=== PATIENT | male | born 1965 | race Caucasian/White ===

== ENCOUNTER 2024-06-05 11:29 | Inpatient (IN) ==
[2024-06-05 12:17] LABS: Hematocrit (blood only) 22.6 % (42.0-52.0); Hemoglobin 7.6 g/dl (14.0-18.0); Mean Corpuscular Hemoglobin 33.2 pg (25.0-34.0); Mean Corpuscular Hgb Conc 33.6 g/dL (32.0-36.0); Mean Corpuscular Volume 98.7 fL (80.0-100.0); Mean Platelet Volume 11.1 fL (9.4-12.4); Platelet Count 136 K/uL (130-400); RDW Coefficient of Variation 17.2 % (11.5-14.5); RDW Standard Deviation 61.5 fL (36.4-46.3); Red Blood Count 2.29 M/uL (4.70-6.10); White Blood Count 17.44 K/ul (4.8-10.8)
[2024-06-05 12:30] LABS: Albumin Level 2.8 gm/dl (3.4-5.0); Anion Gap 12 (3-11); Bilirubin,Total 16.6 mg/dl (0.2-1.0); Calcium 8.7 mg/dl (8.6-10.3); Carbon Dioxide 19 mmol/L (21-32); Chloride 96 mmol/L (98-107); Potassium 3.8 mmol/L (3.5-5.1); Sodium 127 mmol/L (136-145)
[2024-06-05 12:36] LABS: Alanine Aminotransferase 50 U/L (7-52); Albumin Globulin Ratio 0.7 (0.9-2); Alkaline Phosphatase 169 U/L (34-104); Aspartate Aminotransferase 149 U/L (13-39); BUN Creatinine Ratio 48.6 (10-20); Blood Urea Nitrogen 90 mg/dl (6-23); Globulin 4.1 gm/dl (2.5-4.0); Glucose 123 mg/dl (70-99(Fasting)); Total Protein 6.9 gm/dl (6.0-8.3)
[2024-06-05 12:40] LABS: Troponin I High Sensitivity 7.7 pg/ml (0-20)
[2024-06-05 12:46] LABS: INR 1.7 (0.9-1.1); Partial Thromboplastin Ratio 1.2; Partial Thromboplastin Time 31 Seconds (21-31); Prothrombin Time 17.5 Seconds (9.0-12.0)
[2024-06-05] MEDS ORDERED: SODIUM CHLORIDE 0.9% 100 ML IV PRN ×2 (12:59→23:22)
[2024-06-05] MEDS ORDERED: SODIUM CHLORIDE 0.9% 50 ML IV PRN ×2 (12:59→23:22)
[2024-06-05 13:20] LABS: Adenovirus PCR Not Detected (NotDetected); Bordetella parapertussis PCR Not Detected (NotDetected); Bordetella pertussis PCR Not Detected (NotDetected); Chlamydia pneumoniae PCR Not Detected (NotDetected); Coronavirus 229E PCR Not Detected (NotDetected); Coronavirus CoV-2 (COVID19)PCR Not Detected (NotDetected); Coronavirus HKU1 PCR Not Detected (NotDetected); Coronavirus NL63 PCR Not Detected (NotDetected); Coronavirus OC43PCR Not Detected (NotDetected); Human Metapneumovirus PCR Not Detected (NotDetected); Influenza A PCR Not Detected (NotDetected); Influenza B PCR Not Detected (NotDetected); Mycoplasma pneumoniae PCR Not Detected (NotDetected); Parainfluenza Virus 1 PCR Not Detected (NotDetected); Parainfluenza Virus 2 PCR Not Detected (NotDetected); Parainfluenza Virus 3 PCR Not Detected (NotDetected); Parainfluenza Virus 4 PCR Not Detected (NotDetected); Respiratory Syncytial VirusPCR Not Detected (NotDetected); Rhinovirus/Enterovirus PCR Not Detected (NotDetected)
[2024-06-05] MEDS: SODIUM CHLORIDE 0.9% 1,000 ML IV SCH (13:26)
[2024-06-05 13:29] LABS: Magnesium 1.7 mg/dl (1.7-2.4)
--- NOTE | 2024-06-05 13:52 | CT Scan Report ---
CT OF THE CERVICAL SPINE WITHOUT CONTRAST CLINICAL HISTORY: fall COMPARISON STUDY: MRI of the cervical spine January 10, 2022. CT of the cervical spine January 28, 2022. TECHNIQUE: Helical axial images of the cervical spine were obtained without IV contrast. Sagittal a nd coronal reconstructions were viewed. Automated exposure control was utilized for the study. A do se lowering technique was utilized adhering to the principles of ALARA. FINDINGS: Straightening of the cervical lordosis is unchanged. Vertebral body heights are maintained. No acute cervical spine fracture or subluxation is present. There is no prevertebral edema. Facet samuel ints are intact. There is moderate multilevel disc space narrowing, endplate osteophytosis and facet arthrosis within the cervical spine. IMPRESSION: No acute cervical spine fracture or subluxation. ACT 112: Negative or not required by law. Electronically signed by: Keyshawn Newell M.D. 06/05/2024 1:51 PM
--- NOTE | 2024-06-05 13:57 | CT Scan Report ---
CT head/brain wo con CLINICAL HISTORY: fall. TECHNIQUE: Multiple axial CT images of the head were obtained without contrast. Sagittal and coronal reconstructions were done. A dose lowering technique was utilized adhering to the principles of ALARA . CT DOSE: 3234.99 mGy.cm COMPARISON: 05/18/2023 FINDINGS: The CT findings are unchanged. There is no acute intracranial process identified. There is no intra-axial or extra-axial fluid collection, hemorrhage, or mass. There is no midline shift. There is no skull fracture. There is no fluid in the mastoid air cells of the middle ear. The visualized p aranasal sinuses are unremarkable IMPRESSION: Stable exam; no acute intracranial process identified ACT 112: Negative or not required by law. The above report was generated using voice recognition software. It may contain grammatical, syntax o r spelling errors. Electronically signed by: Lima Meza M.D. 06/05/2024 1:55 PM
--- NOTE | 2024-06-05 14:03 | Electrocardiogram Report ---
Test Reason : Blood Pressure : */* mmHG Vent. Rate : 97 BPM Atrial Rate : 97 BPM P-R Int : 150 ms QRS Dur : 96 ms QT Int : 408 ms P-R-T Axes : 78 41 0 degrees QTcB Int : 518 ms Normal sinus rhythm T wave abnormality, consider inferior ischemia Prolonged QT Abnormal ECG When compared with ECG of 18-May-2023 19:03, Nonspecific T wave abnormality now evident in Lateral leads QT has lengthened Confirmed by Jeremiah Fonseca ([id number]) on 06/05/2024 1:35:33 PM Referred By: Confirmed By: Jeremiah Fonseca
--- NOTE | 2024-06-05 14:06 | CT Scan Report ---
ABDOMEN AND PELVIS CT WITHOUT CONTRAST CT DOSE: 3234.99mGy*cm HISTORY: abd pain fall distention ascites TECHNIQUE: Multiaxial CT images of the abdomen and pelvis were performed without contrast. Sagittal and coronal reconstructions were done. A dose lowering technique was utilized adhering to the princip les of JHONATAN. COMPARISON STUDY: None FINDINGS: There is ascites with a nodular liver contour, splenomegaly, and pronounced to the left upp er quadrant varices. There are no focal liver lesions depicted on this noncontrast study. The gallbla dder and bile ducts are unremarkable. The adrenal glands and kidneys are grossly negative. There are no pancreatic lesion is detected. Ther e is haziness throughout the mesentery associated with this ascites and although pancreatitis is doub tful, cannot be excluded. There is no bowel obstruction or free air. There is no periaortic adenopathy. There is no obstructive uropathy. In the pelvis, multiple colonic diverticula are identified. There is no evidence of diverticulitis. U nopacified urinary bladder is negative. The appendix is not well delineated. There is ascitic fluid i n angle hernias bilaterally. There is a small umbilical hernia containing a small bowel loop with no associated incarceration or obstruction. In the lung bases, there is no lung lesion identified. There is deformity of the anterior costochondr al cartilages with pectus excavatum. There is a small hiatal hernia present. IMPRESSION: Cirrhosis with portal hypertension and four-quadrant ascites. Small umbilical hernia with minimal protrusion of an adjacent small bowel loop. No acute traumatic injuries identified. ACT 112: Negative or not required by law. The above report was generated using voice recognition software. It may contain grammatical, syntax o r spelling errors. Electronically signed by: Lima Meza M.D. 06/05/2024 2:05 PM
--- NOTE | 2024-06-05 14:07 | Emergency Department Note ---
History of Present Illness General Chief complaint: GI Assessment Stated complaint: FLUIDS, GI, BLOODWORK DONE Time Seen by Provider: 06/05/24 12:31 History of Present Illness Provider complaint: Illness Maximum Pain Intensity: 2 58-year-old male alcoholic presents emergency department for illness. Patient reports that he stopped drinking approximately 4 weeks ago because he stated he want to be sober. Patient states he used to drink Minh Kennedy and beer on a regular basis. Patient reports that from or June 03 he started having flulike symptoms. He reports that on May 30 he started having blood in his stools. Patient states he went to his PCP and he was referred here. Patient [place] any fever. He reports nausea vomiting and diarrhea. Reports abdominal pain. Home Medications Medication Instructions Recorded Confirmed Type allopurinol 100 mg tablet 100 mg PO QAM 03/09/21 05/18/23 History fluticasone propionate 50 1 spray intranasal BID PRN sinus 03/09/21 05/18/23 History mcg/actuation nasal congestion spray,suspension amlodipine 2.5 mg tablet 2.5 mg PO DAILY 11/21/21 05/18/23 History cetirizine 10 mg tablet (Zyrtec) 10 mg PO DAILY PRN ALLERGIES 11/21/21 05/18/23 History chlorthalidone 50 mg tablet 50 mg PO DAILY 11/21/21 05/18/23 History telmisartan 80 mg tablet 80 mg PO DAILY 11/21/21 05/18/23 History trazodone 50 mg tablet 50 mg PO HS 05/18/23 05/18/23 History Allergies Allergy/AdvReac Type Severity Reaction Status Date / Time pollen extracts Allergy Intermediate SNEEZING, Verified 05/18/23 20:46 CONGESTION Past Med/Surg History Problem List (Updated 06/05/24 @ 17:37 by Stacy Fregoso DO) Neuropathy Hyponatremia Anemia Jaundice (Acute) Alcoholic hepatitis (Acute) GI bleed (Acute) СВЕТЛАНА (obstructive sleep apnea) Intolerance of continuous positive airway pressure (CPAP) ventilation H/O: HTN (hypertension) Arthritis Sleep apnea Numbness Impaired gait Tremor Medical History Idiopathic polyneuropathy Gout GERD (gastroesophageal reflux disease) Anxiety Parkinson disease COVID-19 No pertinent family history Surgical History No pertinent past surgical history Family History Father Prostate cancer Grandfather Prostate cancer Uncle Prostate cancer Mother Heart disease Hypertension Sister Colorectal cancer Grandfather (Maternal) Heart disease Social History (Updated 06/05/24 @ 17:28 by Stacy Fregoso DO) Smoking Status: Never smoker Hx Alcohol Use: Yes Alcohol type: beer Alcohol Intake Frequency: 2-3 x/Week Hx Substance Use: No Preferred Language: Grenadian Communication Ability: Effective Obstetrician/Gynecologist Required: Yes and No Beliefs That Will Affect Care: None Current Living Situation: Alone Other Information That Helps Us Care for You: No Feels Safe at Home: Yes Assistive Devices: None Physical Exam Vital Signs Vital Signs - 24 hr 06/05/24 11:39 06/05/24 12:53 06/05/24 13:29 Temperature 36.4 C L Temperature Source Oral Pulse Rate 96 H 88 Pulse Rate [Apical] 93 H Respiratory Rate 18 22 22 Blood Pressure 85/57 L Blood Pressure [Left Arm] 115/66 Blood Pressure Mean 66 Blood Pressure Mean [Left Arm] 82 Pulse Oximetry 18 L 100 100 Oxygen Delivery Method Room Air Room Air Room Air Oxygen Flow Rate Sepsis Recent Fever Within 48 Hours No Sepsis New/Unexplained Change in Mental Status N/A Sepsis Action Taken by Nursing No Action Required 06/05/24 14:10 06/05/24 14:34 06/05/24 14:49 Temperature 36.6 C 36.5 C 36.6 C Temperature Source Oral Oral Oral Pulse Rate 93 H 94 H 94 H Pulse Rate [Apical] Respiratory Rate 22 20 17 Blood Pressure 122/67 124/64 129/71 Blood Pressure [Left Arm] Blood Pressure Mean 85 84 90 Blood Pressure Mean [Left Arm] Pulse Oximetry 99 98 99 Oxygen Delivery Method Oxygen Flow Rate 0 0 0 Sepsis Recent Fever Within 48 Hours Sepsis New/Unexplained Change in Mental Status Sepsis Action Taken by Nursing 06/05/24 14:49 06/05/24 15:19 06/05/24 16:19 Temperature 36.6 C 36.6 C 36.4 C L Temperature Source Oral Oral Oral Pulse Rate 94 H 92 H 88 Pulse Rate [Apical] Respiratory Rate 17 19 17 Blood Pressure 129/71 124/68 106/66 Blood Pressure [Left Arm] Blood Pressure Mean 90 86 79 Blood Pressure Mean [Left Arm] Pulse Oximetry 99 100 99 Oxygen Delivery Method Oxygen Flow Rate Sepsis Recent Fever Within 48 Hours Sepsis New/Unexplained Change in Mental Status Sepsis Action Taken by Nursing Physical Exam GENERAL: Ill-appearing. HENT: Exam performed. - Head: Normocephalic and atraumatic. EYES: Conjunctivae and EOM are normal. Pupils are equal, round, and reactive to light. scleral icterus. NECK: Normal range of motion. Neck supple. No JVD present. CV: Normal rate, regular rhythm, normal heart sounds and intact distal pulses. There is no peripheral edema. Palpable radial pulses bue. PULM/CHEST: Effort normal and breath sounds normal. No respiratory distress. No stridor. He has no wheezes. He has no rales. - Chest Wall: He exhibits no tenderness. ABD: The abdomen is soft. Mild distension. Mild tenderness to palpation. There is no rebound, no guarding Rectal: Bright red blood per rectum NEURO: He is alert and oriented to person, place, and time. Sensation grossly intact. SKIN: Jaundiced. Abrasions and wounds over the patient's buttocks. Course Course 1231: The patient was evaluated in room D1B. A complete history and physical exam was performed Cardiac monitoring: An order was placed for continuous cardiac monitoring. The monitor shows a rate of 90 with sinus rhythm interpreted by me 1353: Vital signs stable. Labs show white blood cell count of 17.44. Hemoglobin 7.6. INR 1.7. Sodium 127. Creatinine 1.85, at baseline. Globin 16.6, up from 1.318 days ago. Lipase was too numerous to perform. CT of the abdomen pelvis viewed by me showed ascites at no hepatobiliary dilatation. Discussed with Dr. [facility] radiology and he agrees with this assessment. 1458: Vital signs stable. Blood pressure 129/71. CT head and C-spine negative. Official radiology report for CT of the abdomen pelvis shows cirrhosis with portal hypertension and four-quadrant ascites. Small umbilical hernia with minimal protrusion of an adjacent small bowel loop no traumatic injuries. Blood transfusions begun. I went to attempt an ultrasound-guided diagnostic paracentesis however there were very small fluid pockets with bowel that was floating in it. There was significant concern that if we attempted a paracentesis there would be bowel injury. I attempted to contact [facility] Fan but no response. I spoke with on-call GI Dr. Zamudio. He agreed we should hold off on bedside diagnostic paracentesis and not risk bowel injury. He recommends to continue IV ceftriaxone and treat empirically for SBP. He recommends starting octreotide bolus and drip. He recommends gentle hydration. Right now the patient's blood pressure is stable, he states that if the patient's blood pressure becomes low that albumin can be used. He states hold off on albumin at this time. He states he will be on consult and the patient to be admitted to the hospitalist team. 1525: Vital signs stable. Discussed case with Dr. Miller who will evaluate the patient for admission. I did receive [place] text from LOKESH Jacques who states he will have availability tomorrow to perform procedure. Administered Medications Octreotide Acetate 500 mcg/ (Sodium Chloride) 100.5 mls @ 10.05 mls/hr IV .Q10H [place] Stop: 07/05/24 15:14 Last Admin: 06/05/24 17:01 Dose: 50 mcg/hr, 10.1 mls/hr Documented By: MARIA EUGENIA Parenteral Electrolytes (Plasma-Lyte A Ph 7.4) 1,000 mls @ 80 mls/hr IV .[id number] [place] Stop: 06/06/24 16:29 Last Admin: 06/05/24 16:32 Dose: 80 mls/hr Documented By: MARIA EUGENIA Discontinued Medications Sodium Chloride (Nss) 1,000 mls @ 125 mls/hr IV .Q8H [place] Stop: 06/06/24 12:59 Last Infusion: 06/05/24 15:59 Dose: Infused Documented By: MARIA EUGENIA Admin: 06/05/24 13:26 Dose: 125 mls/hr Documented By: SILAS Ceftriaxone Sodium (Rocephin) 2,000 mg in 50 mls @ 100 mls/hr IV NOW STA Stop: 06/05/24 14:36 Last Infusion: 06/05/24 15:47 Dose: Infused Documented By: Admin: 06/05/24 15:16 Dose: 100 mls/hr Documented By: MARIA EUGENIA Octreotide Acetate 50 mcg/ (Syringe) 10 mls @ 3 mls/min IV ONE STA Stop: 06/05/24 15:10 Last Admin: 06/05/24 16:58 Dose: 3 mls/min Documented By: MARIA EUGENIA Pantoprazole Sodium 80 mg/ (Dextrose) 120 mls @ 480 mls/hr IV NOW STA Stop: 06/05/24 15:26 Last Infusion: 06/05/24 16:34 Dose: Infused Documented By: MARIA EUGENIA Admin: 06/05/24 16:18 Dose: 480 mls/hr Documented By: MARIA EUGENIA Phytonadione 10 mg/ Dextrose 51 mls @ 102 mls/hr IV ONE ONE Stop: 06/05/24 15:49 Last Infusion: 06/05/24 16:41 Dose: Infused Documented By: MARIA EUGENIA Admin: 06/05/24 16:10 Dose: 102 mls/hr Documented By: MARIA EUGENIA Lactated Ringer's (Lr) 1,000 mls @ 80 mls/hr IV .[id number] [place] Stop: 06/06/24 16:29 Last Admin: 06/05/24 16:27 Dose: Not Given Documented By: MARIA EUGENIA Lidocaine/Epinephrine (Lidocaine 1%/Epinephrine 1:100,000 50 Ml Vial) Confirm Administered Dose 1 ml .ROUTE .STK-MED ONE Stop: 06/05/24 13:26 Last Admin: 06/05/24 15:20 Dose: Not Given Documented By: MARIA EUGENIA Critical Care Time Critical Care Time: Yes Total Critical Care Time: 76 I have personally spent greater than 76 minutes of critical care time in the direct management of this patient. This includes bedside care, interpretation of diagnostic studies, and testing, discussion with consultants, patient, and family members, and other required patient management activities. This 76 minutes is in excess of all separately billable procedures. Medical Decision Making Laboratory Data Attestation: I reviewed the patient's lab results. 06/05/24 11:53 06/05/24 11:53 Lab Results 06/05/24 06/05/24 06/05/24 Range/Units 11:43 11:53 12:58 WBC 17.44 H (4.8-10.8) K/ul RBC 2.29 L (4.70-6.10) M/uL Hgb 7.6 L (14.0-18.0) g/dl Hct 22.6 L (42.0-52.0) % MCV 98.7 (80.0-100.0) fL MCH 33.2 (25.0-34.0) pg MCHC 33.6 (32.0-36.0) g/dL RDW Std Deviation 61.5 H (36.4-46.3) fL RDW Coeff of Sean 17.2 H (11.5-14.5) % Plt Count 136 (130-400) K/uL MPV 11.1 (9.4-12.4) fL PT 17.5 H (9.0-12.0) Seconds INR 1.7 H (0.9-1.1) APTT 31 (21-31) Seconds PTT Ratio 1.2 Sodium 127 L (136-145) mmol/L Potassium 3.8 (3.5-5.1) mmol/L Chloride 96 L (98-107) mmol/L Carbon Dioxide 19 L (21-32) mmol/L Anion Gap 12 H (3-11) BUN 90 H (6-23) mg/dl Creatinine 1.85 H (0.6-1.4) mg/dl Est Cr Clr Drug Dosing Not Reportable eGFR 41.96 BUN/Creatinine Ratio 48.6 H (10-20) Glucose 123 H (70-99(Fasting)) mg/dl Calcium 8.7 (8.6-10.3) mg/dl Magnesium 1.7 (1.7-2.4) mg/dl Total Bilirubin 16.6 H (0.2-1.0) mg/dl AST 149 H (13-39) U/L ALT 50 (7-52) U/L Alkaline Phosphatase 169 H (34-104) U/L Troponin I High Sens 7.7 (0-20) pg/ml Total Protein 6.9 (6.0-8.3) gm/dl Albumin 2.8 L (3.4-5.0) gm/dl Globulin 4.1 H (2.5-4.0) gm/dl Albumin/Globulin Ratio 0.7 L (0.9-2) Lipase TNP POC Stool Occult Blood Positive A (Negative) Ethyl Alcohol mg/dL (<10.0) mg/dl Adenovirus (PCR) Not Detected (NotDetected) B. pertussis DNA (PCR) Not Detected (NotDetected) B.parapertussis DNA PCR Not Detected (NotDetected) C. pneumoniae DNA (PCR) Not Detected (NotDetected) Coronavirus OC43 (PCR) Not Detected (NotDetected) Coronavirus HKU1 (PCR) Not Detected (NotDetected) Coronavirus 229E (PCR) Not Detected (NotDetected) SARS-CoV-2 (PCR) Not Detected (NotDetected) Coronavirus NL63 (PCR) Not Detected (NotDetected) Human Metapneumovir PCR Not Detected (NotDetected) Influenza Type A (PCR) Not Detected (NotDetected) Influenza Type B (PCR) Not Detected (NotDetected) M. pneumoniae (PCR) Not Detected (NotDetected) Parainfluenza 1 (PCR) Not Detected (NotDetected) Parainfluenza 2 (PCR) Not Detected (NotDetected) Parainfluenza 3 (PCR) Not Detected (NotDetected) Parainfluenza 4 (PCR) Not Detected (NotDetected) RSV (PCR) Not Detected (NotDetected) Entero/Rhino (PCR) Not Detected (NotDetected) Blood Type O Positive Blood Type Recheck Antibody Screen NEGATIVE Crossmatch See Detail 06/05/24 06/05/24 Range/Units 13:05 15:17 WBC (4.8-10.8) K/ul RBC (4.70-6.10) M/uL Hgb (14.0-18.0) g/dl Hct (42.0-52.0) % MCV (80.0-100.0) fL MCH (25.0-34.0) pg MCHC (32.0-36.0) g/dL RDW Std Deviation (36.4-46.3) fL RDW Coeff of Sean (11.5-14.5) % Plt Count (130-400) K/uL MPV (9.4-12.4) fL PT (9.0-12.0) Seconds INR (0.9-1.1) APTT (21-31) Seconds PTT Ratio Sodium (136-145) mmol/L Potassium (3.5-5.1) mmol/L Chloride (98-107) mmol/L Carbon Dioxide (21-32) mmol/L Anion Gap (3-11) BUN (6-23) mg/dl Creatinine (0.6-1.4) mg/dl Est Cr Clr Drug Dosing eGFR BUN/Creatinine Ratio (10-20) Glucose (70-99(Fasting)) mg/dl Calcium (8.6-10.3) mg/dl Magnesium (1.7-2.4) mg/dl Total Bilirubin (0.2-1.0) mg/dl AST (13-39) U/L ALT (7-52) U/L Alkaline Phosphatase (34-104) U/L Troponin I High Sens (0-20) pg/ml Total Protein (6.0-8.3) gm/dl Albumin (3.4-5.0) gm/dl Globulin (2.5-4.0) gm/dl Albumin/Globulin Ratio (0.9-2) Lipase POC Stool Occult Blood (Negative) Ethyl Alcohol mg/dL < 10.0 (<10.0) mg/dl Adenovirus (PCR) (NotDetected) B. pertussis DNA (PCR) (NotDetected) B.parapertussis DNA PCR (NotDetected) C. pneumoniae DNA (PCR) (NotDetected) Coronavirus OC43 (PCR) (NotDetected) Coronavirus HKU1 (PCR) (NotDetected) Coronavirus 229E (PCR) (NotDetected) SARS-CoV-2 (PCR) (NotDetected) Coronavirus NL63 (PCR) (NotDetected) Human Metapneumovir PCR (NotDetected) Influenza Type A (PCR) (NotDetected) Influenza Type B (PCR) (NotDetected) M. pneumoniae (PCR) (NotDetected) Parainfluenza 1 (PCR) (NotDetected) Parainfluenza 2 (PCR) (NotDetected) Parainfluenza 3 (PCR) (NotDetected) Parainfluenza 4 (PCR) (NotDetected) RSV (PCR) (NotDetected) Entero/Rhino (PCR) (NotDetected) Blood Type Blood Type Recheck O Positive Antibody Screen Crossmatch Imaging Data Attestation: I personally reviewed and interpreted this imaging study as follows: My Impression: CT of the abdomen pelvis viewed by me showed ascites at no hepatobiliary dilatation. Radiologist's Impression: Abdomen/Pelvis CT 06/05/24 12:[address] WITHOUT CONTRAST CT DOSE: 3234.99mGy*cm HISTORY: abd pain fall distention ascites TECHNIQUE: Multiaxial CT images of the abdomen and pelvis were performed without contrast. Sagittal and coronal reconstructions were done. A dose lowering technique was utilized adhering to the principles of ALARA. COMPARISON STUDY: None FINDINGS: There is ascites with a nodular liver contour, splenomegaly, and pronounced to the left upper quadrant varices. There are no focal liver lesions depicted on this noncontrast study. The gallbladder and bile ducts are unremarkable. The adrenal glands and kidneys are grossly negative. There are no pancreatic lesion is detected. There is haziness throughout the mesentery associated with this ascites and although pancreatitis is doubtful, cannot be excluded. There is no bowel obstruction or free air. There is no periaortic adenopathy. There is no obstructive uropathy. In the pelvis, multiple colonic diverticula are identified. There is no evidence of diverticulitis. Unopacified urinary bladder is negative. The appendix is not well delineated. There is ascitic fluid in angle hernias bilaterally. There is a small umbilical hernia containing a small bowel loop with no associated incarceration or obstruction. In the lung bases, there is no lung lesion identified. There is deformity of the anterior costochondral cartilages with pectus excavatum. There is a small hiatal hernia present. IMPRESSION: Cirrhosis with portal hypertension and four-quadrant ascites. Small umbilical hernia with minimal protrusion of an adjacent small bowel loop. No acute traumatic injuries identified. ACT 112: Negative or not required by law. The above report was generated using voice recognition software. It may contain grammatical, syntax or spelling errors. Electronically signed by: Lima Meza M.D. 06/05/2024 2:[address] 06/05/24 12:59 CT OF THE CERVICAL SPINE WITHOUT CONTRAST CLINICAL HISTORY: fall COMPARISON STUDY: MRI of the cervical spine January 10, 2022. CT of the cervical spine January 28, 2022. TECHNIQUE: Helical axial images of the cervical spine were obtained without IV contrast. Sagittal and coronal reconstructions were viewed. Automated exposure control was utilized for the study. A dose lowering technique was utilized adhering to the principles of ALARA. FINDINGS: Straightening of the cervical lordosis is unchanged. Vertebral body heights are maintained. No acute cervical spine fracture or subluxation is present. There is no prevertebral edema. Facet joints are intact. There is moderate multilevel disc space narrowing, endplate osteophytosis and facet arthrosis within the cervical spine. IMPRESSION: No acute cervical spine fracture or subluxation. ACT 112: Negative or not required by law. Electronically signed by: Keyshawn Newell M.D. 06/05/2024 1:[address] 06/05/24 12:59 CT head/brain wo con CLINICAL HISTORY: fall. TECHNIQUE: Multiple axial CT images of the head were obtained without contrast. Sagittal and coronal reconstructions were done. A dose lowering technique was utilized adhering to the principles of ALARA. CT DOSE: 3234.99 mGy.cm COMPARISON: 05/18/2023 FINDINGS: The CT findings are unchanged. There is no acute intracranial process identified. There is no intra-axial or extra-axial fluid collection, hemorrhage, or mass. There is no midline shift. There is no skull fracture. There is no fluid in the mastoid air cells of the middle ear. The visualized paranasal sinuses are unremarkable IMPRESSION: Stable exam; no acute intracranial process identified ACT 112: Negative or not required by law. The above report was generated using voice recognition software. It may contain grammatical, syntax or spelling errors. Electronically signed by: Lima Meza M.D. 06/05/2024 1:55 PM Chest X-Ray 06/05/24 15:11 XR chest 1V portable CLINICAL HISTORY: Sepsis. COMPARISON STUDY: Chest radiograph May 18, 2023. FINDINGS: Lung volumes are normal. Lungs are clear. There is no pneumothorax or pleural effusion. Cardiac size is stable. Mediastinal contours are normal. There is no evidence for pulmonary edema. IMPRESSION: No acute cardiopulmonary findings. ACT 112: Negative or not required by law. Electronically signed by: Keyshawn Newell M.D. 06/05/2024 3:52 PM ECG Data Attestation: I personally reviewed and interpreted this ECG as follows: Rate (beats per minute): 97 Rhythm: + normal sinus ECG Intervals/blocks: + Normal QRS, + Prolonged QT and + Normal TN ECG ST segments: + Normal ST segments MDM Narrative 1231: The patient was evaluated in room D1B. A complete history and physical exam was performed Cardiac monitoring: An order was placed for continuous cardiac monitoring. The monitor shows a rate of 90 with sinus rhythm interpreted by me 1353: Vital signs stable. Labs show white blood cell count of 17.44. Hemoglobin 7.6. INR 1.7. Sodium 127. Creatinine 1.85, at baseline. Globin 16.6, up from 1.318 days ago. Lipase was too numerous to perform. CT of the abdomen pelvis viewed by me showed ascites at no hepatobiliary dilatation. Discussed with Dr. [facility] radiology and he agrees with this assessment. 1458: Vital signs stable. Blood pressure 129/71. CT head and C-spine negative. Official radiology report for CT of the abdomen pelvis shows cirrhosis with portal hypertension and four-quadrant ascites. Small umbilical hernia with minimal protrusion of an adjacent small bowel loop no traumatic injuries. Blood transfusions begun. I went to attempt an ultrasound-guided diagnostic paracentesis however there were very small fluid pockets with bowel that was floating in it. There was significant concern that if we attempted a paracentesis there would be bowel injury. I attempted to contact [facility] Fan but no response. I spoke with on-call GI Dr. Zamudio. He agreed we should hold off on bedside diagnostic paracentesis and not risk bowel injury. He recommends to continue IV ceftriaxone and treat empirically for SBP. He recommends starting octreotide bolus and drip. He recommends gentle hydration. Right now the patient's blood pressure is stable, he states that if the patient's blood pressure becomes low that albumin can be used. He states hold off on albumin at this time. He states he will be on consult and the patient to be admitted to the hospitalist team. 1525: Vital signs stable. Discussed case with Dr. Miller who will evaluate the patient for admission. I did receive [place] text from LOKESH Jacques who states he will have availability tomorrow to perform procedure. Impression & Plan GI bleed, Alcoholic hepatitis, Jaundice Discharge Plan Visit Data Chief Complaint: GI Assessment Stated Complaint: FLUIDS, GI, BLOODWORK DONE ED Provider: Juan Mariee Discharge Problem: GI bleed, Alcoholic hepatitis, Jaundice Patient Disposition: Admitted As Inpatient Discharge Instructions Interventions: ED Discharge Assessment Last Done: 06/05/24 17:32
[2024-06-05] MEDS: cefTRIAXone SODIUM 2,000 MG/50 ML BAG IV STA (15:16)
[2024-06-05] MEDS: LIDOCAINE 1%/EPINEPHRINE 1:100,000 50 ML VIAL ONE (15:20)
--- NOTE | 2024-06-05 15:33 | History & Physical Report ---
Date of Service June 05, 2024 Assessment & Plan (1) Jaundice: (2) Alcoholic hepatitis: (3) GI bleed: (4) Anemia: (5) Hyponatremia: (6) СВЕТЛАНА (obstructive sleep apnea): (7) H/O: HTN (hypertension): (8) Neuropathy: Plan Peter Dey is a 58 year-old male with a medical history significant for gout, GERD, HTN, neuropathy, and DAVIS. Patient was admitted for abdominal ascites and cirrhosis as well as GI bleed. Cirrhosis | Abdominal Ascites -Previously diagnosed with nonalcoholic steatohepatitis with stage 2 liver fibrosis by biopsy (March 2022), was lost to follow up with [facility] hepatology over two years ago -Family reports jaundiced skin and eyes for at least 1 week, increasing abdominal girth and poor appetite for several weeks -Suspect that recent viral flu-like illness contributed to recent rapid progression of symptoms/decline in liver function -CT A/P shows: "cirrhosis with portal hypertension and four-quadrant ascites. Small umbilical hernia with minimal protrusion of an adjacent small bowel loop." -Due to anatomy of bowel loop, ED physician defers paracentesis to IR -Will order IR paracentesis with goal to complete tomorrow (06/06) -TBili of 16.6. MELD score currently at 32 -Monitor daily liver function panel, CBC -Continue Ceftriaxone for coverage of SBP. Leukocytosis but afebrile at present. -Due to history of heavier alcohol consumption, will order AWSS "at-risk" protocol -Negative serum alcohol level in ED, patient reports it has been >1 month since last drinking -BP has been 100s systolic while in ED, if patient becomes more hypotensive could consider IV albumin Gastrointestinal Bleed | Anemia -Ongoing for >1 week with bright red blood in stool -POC Hemoccult positive in the ED. Ordered stool biofire due to bowel incontinence, however this is likely due to presence of blood in stool -Hgb 7.6 on arrival to ED. Started on Octreotide in ED -Blood consent form signed, s/p 1u PRBCs -Monitor H&H q6h, transfuse for Hgb <7 -Continue IV Protonix BID, maintenance IV fluids ordered -GI consult ordered, appreciated recommendations -Will keep NPO while awaiting further GI evaluation СВЕТЛАНА- continue CPAP HTN- holding home anti-hypertensives due to current borderline hypotension Admit to: PCU/tele Diet: NPO VTE Prophylaxis: Contraindicated due to GI bleed Code Status: Full Code History of Present Illness Primary Care Provider: Vivi Lopez MD Peter Dey is a 58 year-old male with a medical history significant for gout, GERD, HTN, neuropathy, and DAVIS who presented to the ED for blood in stool. He was seen by his PCP this morning for a recent flu-like illness and was found to be hypotensive (BP 78/42) and jaundiced, was strongly recommended to go to the ED for further evaluation. Patient presented to the ED alongside his mother and father. Patient states that he stopped drinking alcohol about 1 month ago (states he had been drinking about 1 beer and 300mL of Minh Kennedy per week at that time), then a few weeks later he started to develop a flu-like illness and had episodes of fever, vomiting, and nausea. He states he has not been eating or drinking much fluids recently due to no appetite. He denies dizziness or lightheadedness, but endorses feeling very winded/short of breath with minimal exertion (i.e. standing up). He reports that he has had ongoing bowel incontinence with bright red blood in his stool, also has had bladder incontinence so he has been wearing a Depends since this illness started about two weeks ago. P Patient lives alone, his parents live locally and visit several times per week. Patient previously lived in [place] area, moved to [place] a few years ago. Patient's father notes that he first started to notice that Peter looked a bit yellow about 1.5 weeks ago. Patient notes that his abdomen has also become more large, will occasionally be tender (1 or 2 out of 10 intensity). He recalls being evaluated by hepatology in the past at [facility] (saw Dr. Parr), but has not follow up in about two years. Prior records note a biopsy proven DAVIS with stage 2 liver fibrosis (from biopsy in 2021). ED Course: -CBC, CMP, Type/screen -CXR -2g IV Ceftriaxone, IV Octreotide, Allergies Allergy/AdvReac Type Severity Reaction Status Date / Time pollen extracts Allergy Intermediate SNEEZING, Verified 05/18/23 20:46 CONGESTION Home Medications Medication Instructions Recorded Confirmed Type allopurinol 100 mg tablet 100 mg PO QAM 03/09/21 05/18/23 History fluticasone propionate 50 1 spray intranasal BID PRN sinus 03/09/21 05/18/23 History mcg/actuation nasal congestion spray,suspension amlodipine 2.5 mg tablet 2.5 mg PO DAILY 11/21/21 05/18/23 History cetirizine 10 mg tablet (Zyrtec) 10 mg PO DAILY PRN ALLERGIES 11/21/21 05/18/23 History chlorthalidone 50 mg tablet 50 mg PO DAILY 11/21/21 05/18/23 History telmisartan 80 mg tablet 80 mg PO DAILY 11/21/21 05/18/23 History trazodone 50 mg tablet 50 mg PO HS 05/18/23 05/18/23 History Past Med/Surg History Problem List (Updated 06/05/24 @ 17:37 by Stacy Fregoso DO) Neuropathy Hyponatremia Anemia Jaundice (Acute) Alcoholic hepatitis (Acute) GI bleed (Acute) СВЕТЛАНА (obstructive sleep apnea) Intolerance of continuous positive airway pressure (CPAP) ventilation H/O: HTN (hypertension) Arthritis Sleep apnea Numbness Impaired gait Tremor Medical History Idiopathic polyneuropathy Gout GERD (gastroesophageal reflux disease) Anxiety Parkinson disease COVID-19 No pertinent family history Surgical History No pertinent past surgical history Family History Father Prostate cancer Grandfather Prostate cancer Uncle Prostate cancer Mother Heart disease Hypertension Sister Colorectal cancer Grandfather (Maternal) Heart disease Social History (Updated 06/05/24 @ 17:28 by Stacy Fregoso DO) Smoking Status: Never smoker Hx Alcohol Use: Yes Alcohol type: beer Alcohol Intake Frequency: 2-3 x/Week Hx Substance Use: No Preferred Language: Central [place] Communication Ability: Effective Hot Roller Required: Yes and No Beliefs That Will Affect Care: None Current Living Situation: Alone Feels Safe at Home: Yes Assistive Devices: None Review of Systems Review of Systems: As per above Physical Exam Constitutional: Ill appearing, resting in bed. Alert and oriented. Eyes: PERRL Scleral icterus bilaterally ENMT: Ears: no external ear abnormality Nose: no external nose abnormality Moist mucous membranes Respiratory: normal respiratory effort, lungs clear to auscultation Cardiovascular: Rate/Rhythm: regular rate and regular rhythm Extremities: no edema Gastrointestinal (Abdomen): Inspection/Auscultation: + abdomen distended and + caput medusae present Percussion/Palpation: abdomen soft and + ascites No point tenderness to palpation Musculoskeletal: Moves all limbs independently Skin: + jaundice No rashes, warm and dry. Neurologic: CN's II-XI intact bilaterally, moves all extremities and awake; no focal motor deficits Psychiatric: A+Ox3, euthymic affect Results & Data Results & Data Vital Signs (Past 12 Hours) Vital Signs Temp Pulse Pulse Resp BP BP Pulse Ox 06/05/24 15:19 36.6 C 92 H 19 124/68 100 06/05/24 14:49 36.6 C 94 H 17 129/71 99 06/05/24 14:49 36.6 C 94 H 17 129/71 99 06/05/24 14:34 36.5 C 94 H 20 124/64 98 06/05/24 14:10 36.6 C 93 H 22 122/67 99 06/05/24 13:29 93 H 22 115/66 100 06/05/24 12:53 88 22 100 06/05/24 11:39 36.4 C L 96 H 18 85/57 L 18 L O2 Del Method O2 Flow Rate 06/05/24 15:19 06/05/24 14:49 06/05/24 14:49 0 06/05/24 14:34 0 06/05/24 14:10 0 06/05/24 13:29 Room Air 06/05/24 12:53 Room Air 06/05/24 11:39 Room Air Diagnostic Findings Abdomen/Pelvis CT 06/05/24 12:[address] WITHOUT CONTRAST CT DOSE: 3234.99mGy*cm HISTORY: abd pain fall distention ascites TECHNIQUE: Multiaxial CT images of the abdomen and pelvis were performed without contrast. Sagittal and coronal reconstructions were done. A dose lowering technique was utilized adhering to the principles of ALARA. COMPARISON STUDY: None FINDINGS: There is ascites with a nodular liver contour, splenomegaly, and pronounced to the left upper quadrant varices. There are no focal liver lesions depicted on this noncontrast study. The gallbladder and bile ducts are unremarkable. The adrenal glands and kidneys are grossly negative. There are no pancreatic lesion is detected. There is haziness throughout the mesentery associated with this ascites and although pancreatitis is doubtful, cannot be excluded. There is no bowel obstruction or free air. There is no periaortic adenopathy. There is no obstructive uropathy. In the pelvis, multiple colonic diverticula are identified. There is no evidence of diverticulitis. Unopacified urinary bladder is negative. The appendix is not well delineated. There is ascitic fluid in angle hernias bilaterally. There is a small umbilical hernia containing a small bowel loop with no associated incarceration or obstruction. In the lung bases, there is no lung lesion identified. There is deformity of the anterior costochondral cartilages with pectus excavatum. There is a small hiatal hernia present. IMPRESSION: Cirrhosis with portal hypertension and four-quadrant ascites. Small umbilical hernia with minimal protrusion of an adjacent small bowel loop. No acute traumatic injuries identified. ACT 112: Negative or not required by law. The above report was generated using voice recognition software. It may contain grammatical, syntax or spelling errors. Electronically signed by: Lima Meza M.D. 06/05/2024 2:[address] 06/05/24 12:59 CT OF THE CERVICAL SPINE WITHOUT CONTRAST CLINICAL HISTORY: fall COMPARISON STUDY: MRI of the cervical spine January 10, 2022. CT of the cervical spine January 28, 2022. TECHNIQUE: Helical axial images of the cervical spine were obtained without IV contrast. Sagittal and coronal reconstructions were viewed. Automated exposure control was utilized for the study. A dose lowering technique was utilized adhering to the principles of ALARA. FINDINGS: Straightening of the cervical lordosis is unchanged. Vertebral body heights are maintained. No acute cervical spine fracture or subluxation is present. There is no prevertebral edema. Facet joints are intact. There is moderate multilevel disc space narrowing, endplate osteophytosis and facet arthrosis within the cervical spine. IMPRESSION: No acute cervical spine fracture or subluxation. ACT 112: Negative or not required by law. Electronically signed by: Keyshawn Newell M.D. 06/05/2024 1:[address] 06/05/24 12:59 CT head/brain wo con CLINICAL HISTORY: fall. TECHNIQUE: Multiple axial CT images of the head were obtained without contrast. Sagittal and coronal reconstructions were done. A dose lowering technique was utilized adhering to the principles of ALARA. CT DOSE: 3234.99 mGy.cm COMPARISON: 05/18/2023 FINDINGS: The CT findings are unchanged. There is no acute intracranial process identified. There is no intra-axial or extra-axial fluid collection, hemorrhage, or mass. There is no midline shift. There is no skull fracture. There is no fluid in the mastoid air cells of the middle ear. The visualized paranasal sinuses are unremarkable IMPRESSION: Stable exam; no acute intracranial process identified ACT 112: Negative or not required by law. The above report was generated using voice recognition software. It may contain grammatical, syntax or spelling errors. Electronically signed by: Lima Meza M.D. 06/05/2024 1:55 PM Supervising Physician Co-Signing Physician Notes I personally examined the patient and verified frances points of history and exam, discussed case, and agree with decision making and plan documented by Dr. Fregoso. Patient is a 56-year-old male with a history of alcohol abuse, idiopathic polyneuropathy, hypertension, СВЕТЛАНА, GERD, and gout on admission after a reported 1 week gastrointestinal illness with associated fevers, nausea, vomiting, and bloody diarrhea. Patient was seen by his PCP and found to be jaundice with hypotension and was sent to emergency department. Patient presents to ED with anemia (Hgb 7.6), bilirubin 16.6, elevated lipase, leukocytosis, and hypothermia. [facility], will monitor hemoglobin thereafter. Empiric ceftriaxone initiated, no blood cultures obtained. Patient was fluid resuscitated with 2L LR, now on mIVF. GI consulted. Plan is for diagnostic paracentesis tomorrow for concern of SBP. Octeotide bolus and drip initiated for possible varices. On exam patient jaundiced, lungs clear b/l to auscultation, regular rate and rhythm, abdomen tender to deep palpation, fluid wave present, no guarding. Will monitor hemodynamics closely. Resident Activity Tracking Resident Involvement: Resident Care Provided Care Provided: [facility] Medicine
--- NOTE | 2024-06-05 15:53 | XRay Report ---
XR chest 1V portable CLINICAL HISTORY: Sepsis. COMPARISON STUDY: Chest radiograph May 18, 2023. FINDINGS: Lung volumes are normal. Lungs are clear. There is no pneumothorax or pleural effusion. Car diac size is stable. Mediastinal contours are normal. There is no evidence for pulmonary edema. IMPRESSION: No acute cardiopulmonary findings. ACT 112: Negative or not required by law. Electronically signed by: Keyshawn Newell M.D. 06/05/2024 3:52 PM
[2024-06-05] MEDS: PHYTONADIONE 10 MG in DEXTROSE 5% 50 ML IV ONE (16:10)
[2024-06-05] MEDS: PANTOprazole 80 MG in DEXTROSE 5% 100 ML IV STA (16:18)
[2024-06-05] MEDS: LACTATED RINGER'S 1,000 ML IV SCH (16:27)
[2024-06-05] MEDS: PLASMA-LYTE A 1,000 ML IV SCH (16:32)
[2024-06-05] MEDS: OCTREOTIDE ACETATE 50 MCG in SYRINGE 9.5 ML IV STA (16:58)
[2024-06-05] MEDS: OCTREOTIDE ACETATE 500 MCG in SODIUM CHLORIDE 0.9% 100 ML IV SCH (17:01)
--- OUTSIDE RECORDS SUMMARY | 2024-06-05 17:30 | External Medical Summary | Continuity of Care Document ---
Author Name Unknown Organization [address] Address [address] [place] [phone] Care Team Providers Care Felt Pad Cutter Name Role Phone Luanne Lopez Primary Care Physician [phone] Encounter [facility] [id number] Date(s): 01/03/24 - 01/03/[address], [facility] [address] [place] [address] [place] [phone] Encounter Diagnosis Hypertension(Discharge Diagnosis) - 01/03/24 DAVIS (nonalcoholic steatohepatitis)(Discharge Diagnosis) - 01/03/24 Metabolic syndrome(Discharge Diagnosis) - 01/03/24 Obstructive sleep apnea(Discharge Diagnosis) - 01/03/24 Screening for hyperlipidemia(Discharge Diagnosis) - 01/03/24 Gout(Discharge Diagnosis) - 01/03/24 COVID-19 virus infection(Discharge Diagnosis) - 01/03/24 Prostate cancer screening(Discharge Diagnosis) - 01/03/24 Discharge Disposition: Home or Self Care Attending Physician: MD Lopez Ravishankar E Referring Physician: MD Lopez Ravishankar E Allergies, Adverse Reactions, Alerts No Known Medication Allergies Substance Criticality Severity Reaction Reaction Severity Status Allergy Not found in Search seasonal Active Assessment and Plan Extracted from: Title:Office Visit Note Author:MD Lopez Ravishan kar E Date:01/03/24 1.Hypertension - Update CMP, continue surveillance and routine cardiology f/u - Amlodipine had caused swelling at 10mg so now at 2.5mg and used in conjunction with spironolactone which has workedwell for him since. - Unable to adequately assess via telehealth beyond symptom screening 2.DAVIS (nonalcoholic steatohepatitis) - Management per hepatology - CMP to surveil 3.Metabolic syndrome - CMP to surveil - Continued to encouraged weight loss 4.Obstructive sleep apnea - Did not improve with CPAP x 6 months - ENT consulted, pending scheduling for this as he had to reschedule due to office move and covid 5.Screening for hyperlipidemia - FLP to surveil 6.Gout - Uric acid level to surveil - Congratulated on alcohol reduction 7.COVID-19 virus infection - Symptomatic management and contagion precautions reviewed - No indication for paxlovid atthis time. 8.Prostate cancer screening - PSA Screen given family history f/u PRN or [id number]. Time: 40mins 10 - pre-visit chart review 25 - visit, inclusive of history, exam, and discussion of assessment/plan 5 - post-visit documentation/orders/coordination of care Immunizations Given and Recorded Vaccine Date Status Refusal Reason zoster vaccine, inactivated 1 01/30/23 Given zoster vaccine, inactivated 2 11/28/22 Given influenza virus vaccine, inactivated 01/30/23 Give n tetanus/diphtheria/pertuss, acel (Tdap) 11/28/22 G iven hepatitis B adult vaccine 08/11/22 Given hepatitis B adult vaccine 05/05/22 Given SARS-CoV-2 (COVID-19) mRNA-1273 vaccine 08/12/20 R ecorded SARS-CoV-2 (COVID-19) mRNA-1273 vaccine 07/13/20 R ecorded 1Result Comment: [id number] 11/30/2024 2Result Comment: [id number] 12/30/24 Medications allopurinol 100 mg oral tablet Start: 11/28/22 8:10:00 AM EDT, See Instructions, Disp# 30 tab, Refills: 11, TAKE ONE TABLET BY MOUTH EVERY DAY, Pharmacy: [id number] Start Date: 11/28/22 Status: Ordered amLODIPine 2.5 mg oral tablet Start: 11/07/23 3:26:00 PM EDT, 1 tab, PO, Daily, Disp# 90 tab, Refills: 3, DOSE CHANGE, Note to Pharmacy: CANCEL PREVIOUS DOSE, Pharmacy: [id number] Start Date: 11/07/23 Status: Ordered Collagen Skin Renewal 30 mg-833.33 mg oral tablet Start: 01/09/23 11:29:00 AM EDT Start Date: 01/09/23 Status: Ordered Flonase 50 mcg/inh nasal spray Start: 11/29/21 10:49:00 AM EDT, 1 spray, each nostril, bid, Disp# 16 g, Refills: 3, in each nostrilprn sinus congestion, Pharmacy: [facility] [id number] Start Date: 11/29/21 Status: Ordered indomethacin 50 mg oral capsule Start: 12/22/22 8:06:00 AM EDT, 1 cap, PO, tid, Disp# 30 cap, Refills: 1, as needed for gout flare., PRN: as needed for arthritis, Pharmacy: [facility] [id number] Start Date: 12/22/22 Stop Date: 01/05/23 Status: Ordered magnesium gluconate 250 mg oral tablet Start: 11/28/22 7:55:00 AM EDT, 1 tab, PO, Daily Start Date: 11/28/22 Status: Ordered MetroGel 1% topical gel Start: 05/30/22 8:47:00 AM EST, 1 appl, topical, Daily, Disp# 60 g, Refills: 1, Pharmacy: [facility] [id number] Start Date: 05/30/22 Stop Date: 07/29/22 Status: Ordered spironolactone 50 mg oral tablet Start: 11/07/23 3:26:00 PM EDT, 1 tab, PO, Daily, Disp# 90 tab, Refills: 3, Pharmacy: [facility] [id number] Start Date: 11/07/23 Status: Ordered telmisartan 80 mg oral tablet Start: 05/31/23 4:11:00 PM EST, 1 tab, PO, Daily, Disp# 30 tab, Refills: 5, Pharmacy: [facility] [id number] Start Date: 05/31/23 Status: Ordered traZODone 50 mg oral tablet Start: 12/22/22 8:10:00 AM EDT, 1 tab, PO, qhs, Disp# 30 tab, Refills: 3, Pharmacy: [facility] [id number] Start Date: 12/22/22 Status: Ordered Vitamin C Start: 08/03/22 9:29:00 AM EDT Start Date: 08/03/22 Status: Ordered ZyrTEC 5 mg oral tablet Start: 01/16/23 4:16:00 PM EDT, 1 tab, PO, Daily, Disp# 100 tab, Refills: 0, PRN: as needed for allergy symptoms, Pharmacy: [id number] Start Date: 01/16/23 Status: Ordered Problem List Condition Confirmation Course Effective Dates Status H ealth Status Informant Impaired gait Confirmed Active Alanine aminotransferase above reference range Confirmed Active ABRAHAN positive Confirmed Active Anxiety Confirmed Active Arthritis Confirmed Active Disorder of joint of ankle and/or foot 1 Confirmed Active Epigastric abdominal pain Confirmed Active GERD (gastroesophageal reflux disease) Confirmed Active Gout Confirmed Active Hypertension Confirmed Active Action tremor Confirmed Active Elevated LFTs Confirmed Active Metabolic syndrome Confirmed Active Nausea Confirmed Active Non-alcoholic fatty liver disease Confirmed Active DAVIS (nonalcoholic steatohepatitis) Confirmed Active Obstructive sleep apnea Confirmed Active OA (osteoarthritis) of knee Confirmed Active Body mass index [BMI] 29.0-29.9, adult Confirmed Active Knee pain, left Confirmed Active Small fiber neuropathy Confirmed Active 1Outside Source Comment: very Pleasant middle aged male with recurrent episodes of acute monoarthritis involving the ankles ( | right previously and now the left), with mild hyperuricemia and a history of moderate alcohol use and borderline HTN is very very suggestive of Gout although not proven by aspiration yet; recent labs would suggest he is an under excretor of uric acid probably related to borderline hypertension and borderline creatinine clearance of 87ml/min; would not commit to chronic hypouricemic therapy at present but would strongly avoid alcohol usage; if he has another episode heshould notify me so that he may be seen for an aspiration; if that occurs and is aspiration proven, would then initiate therapy with chronic hypouricemic therapy; this discussed in detail; Diagnosis Diagnosis Type Effective Dates Health Status Clinical Service Informant Screening for hyperlipidemia Discharge Diagnosis 01/03/24 Non-Specified Hypertension Discharge Diagnosis 01/03/24 Non-Specified DAVIS (nonalcoholic steatohepatitis) Discharge Diagnosis 01/03/24 Non-Specified Obstructive sleep apnea Discharge Diagnosis 01/03/24 Non-Specified COVID-19 virus infection Discharge Diagnosis 01/03/24 Non-Specified Prostate cancer screening Discharge Diagnosis 01/03/24 Non-Specified Gout Discharge Diagnosis 01/03/24 Non-Specified Metabolic syndrome Discharge Diagnosis 01/03/24 Non-Specified Procedures Procedure Date Related Diagnosis Body Site Status Liver biopsy specimen 1, 2 04/05/22 Completed Ultrasound--abdomen 3 12/07/21 Com pleted Colonoscopy 4 10/20/21 Completed Esophagogastroduodenoscopy 5, 6 10/20/21 Completed CAT scan Abd pelvis gabriele and Iv contrast 7 08/25/21 Completed Arthropathy of left knee joint 04/17/11 Completed Pectus excavatum 04/17/81 Complete d 1Pathology results: Steatohepatitis. Periportal fibrosis. See microscopic description. 2Successful US guided 18 gauge core biopsy of the left hepatic lobe 31) Normal gallbladder, no gallstones 2) Hepatic steatosis 4COLO to cecum, 2 rectal polyps CF, random AC and sigmoid bx taken, diverticulosis. 5EGD diffuse gastric erythema, antrum erythema bx, 2n duod nl bx 6Pathology: 1. Small intestine, duodenum, second part, biopsy: small intestine without pathologic alteration. 2. Stomach, antrum, biopsy: Antrum without pathologic alteration. Negative for helicobacter pylori. 3. Colon, ascending, biopsy: Colorectum without pathologic alteration. 4. Colon, sigmoid, biopsy: Colorectum without pathologic alteration. 5. Colon, rectum, multiple polypectomy: features of hyperplastic polyp. 7Impression: Mikal hepatis nodes measuring up to 1 centimeter in short axis. Otherwise no acute abnormalities are seen. Social History Social History Type Response Smoking Status Never smoked cigaret cassie Sex Sex Representation Male (finding) [facility] Outpt Note * MD John, Luanne E: PERFORM, MODIFY Event Display: [facility] Outpt Note Authored Date: [id number] I have confirmed the patients name and date of . The patient has consented to this service,and I have advised the patient that this is a billable visit for which they may be subject to a copay. [x ] The patient has initiated this visit after he/she was informed of the availability of telehealth for this medically necessary visit. [ ] The provider initiated this visit after explaining the need for this visit to the patient, who has consented to this virtual visit. I am located at my: [ ] Home [x ] Office [ _ ] Other: _ The patient is located at: [x ] Home [ _ ] Other: _ This visit was conducted via live audio/video technology: [x ] [facility] [ _ ] Zoom This visit was conducted via [ _ ] Telephone, and was not related to a visit or procedure that occurred within the past 7 days. Total time spent communicating with the patient: 25. Chief Complaint 6m f/u, Covid + History of Present Illness Russ is a 58yoM here today for 6m f/u via telehealth due to covid positive status with notable medical history for hypertension, DAVIS, gout, and metabolic syndrome. He follows concurrently with cardiology and as of last visit 07/2023 was doing well from a hypertension standpoint. Gout has been generally stable/wellcontrolled. He only has flares when he slips up with alcohol. СВЕТЛАНА intolerant without improvement on CPAP. Referred to ENT at last visit. He notes his appt got rescheduled due to moving offices so is waiting to reschedule. Metabolic syndrome ongoing with 2ndary DAVIS under surveillance and management per hepatology. Alcohol use has been cut back to about 1 beer a week. Requesting PSA screening due to family history of prostate CA. He notes he's had covid + status x 2 weeks, mild to moderate flu symptoms initially but now still having fatigue, headaches. He notes fever has persisted and he's continued rest/taking fluids.This is his 5th episode of covid. Not vaccinated beyond 1st 2 doses due to having reactions to covid vaccine. He notes he is having diarrhea/urgency and vomiting butthis seems to be subsiding. Review of Systems 01/28pt ROS reviewed/negative except as noted in HPI. Physical Exam Gen - AAOx3 in NAD, well appearing, well nourished Resp - even and unlabored, no increased WOB Neuro - non-focal exam Psych - appropriate/pleasant affect, no SI/HI, normal speech/insight. Assessment/Plan 1.Hypertension - Update CMP, continue surveillance and routine cardiology f/u - Amlodipine had caused swelling at 10mg so now at 2.5mg and used in conjunction with spironolactone which has workedwell for him since. - Unable to adequately assess via telehealth beyond symptom screening 2.DAVIS (nonalcoholic steatohepatitis) - Management per hepatology - CMP to surveil 3.Metabolic syndrome - CMP to surveil - Continued to encouraged weight loss 4.Obstructive sleep apnea - Did not improve with CPAP x 6 months - ENT consulted, pending scheduling for this as he had to reschedule due to office move and covid 5.Screening for hyperlipidemia - FLP to surveil 6.Gout - Uric acid level to surveil - Congratulated on alcohol reduction 7.COVID-19 virus infection - Symptomatic management and contagion precautions reviewed - No indication for paxlovid atthis time. 8.Prostate cancer screening - PSA Screen given family history f/u PRN or [id number]. Time: 40mins 10 - pre-visit chart review 25 - visit, inclusive of history, exam, and discussion of assessment/plan 5 - post-visit documentation/orders/coordination of care Problem List/Past Medical History Ongoing Action tremor Alanine aminotransferase above reference range ABRAHAN positive Anxiety Arthritis Body mass index [BMI] 29.0-29.9, adult Disorder of joint of ankle and/or foot Elevated LFTs Epigastric abdominal pain GERD (gastroesophageal reflux disease) Gout Hypertension Impaired gait Knee pain, left Metabolic syndrome DAVIS (nonalcoholic steatohepatitis) Nausea Non-alcoholic fatty liver disease OA (osteoarthritis) of knee Obstructive sleep apnea Small fiber neuropathy Resolved Diabetes Vomiting in adult patient Procedure/Surgical History Liver biopsy specimen| Service Date: 04/05/2022Ultrasound--abdomen| Service Date: 2Colonoscopy| Service Date: 10/20/2021Esophagogastroduodenoscopy| Service Date: 10/20/2021ATscan Abd pelvis gabriele and Iv contrast| Service Date: 08/25/2021rthropathy of left knee joint| Service Date: 04/17/2011Pectus excavatum| Service Date: 04/17/1981 Medications allopurinol(allopurinol 100 mg oral tablet), See Instructions, 11 refills amLODIPine(amLODIPine 2.5 mg oral tablet), 2.5 mg= 1 tab, PO, Daily, 3 refills ascorbic acid(Vitamin C) ascorbic acid-collagen(Collagen Skin Renewal 30 mg-833.33 mg oral tablet) cetirizine(ZyrTEC 5 mg oral tablet), 5 mg= 1 tab, PO, Daily, PRN fluticasone nasal(Flonase 50 mcg/inh nasal spray), 1 spray, each nostril, bid, 3 refills indomethacin(indomethacin 50 mg oral capsule), 50 mg= 1 cap, PO, tid, PRN, 1 refills magnesium gluconate(magnesium gluconate 250 mg oral tablet), 250 mg= 1 tab, PO, Daily metroNIDAZOLE topical(MetroGel 1% topical gel), 1 appl, topical, Daily, 1 refills spironolactone(spironolactone 50 mg oral tablet), 50 mg= 1 tab, PO, Daily, 3 refills telmisartan(telmisartan 80 mg oral tablet), 1 tab, PO, Daily traZODone(traZODone 50 mg oral tablet), 50 mg= 1 tab, PO, qhs, 3 refills Allergies Allergy Not found in Searchseasonal No Known Medication Allergies Social History Smoking Status Never smoked cigarettes Alcohol - Low Risk Use:Current Type:Beer, Liquor Frequency:1-2 times per week Average drinks per episode in last year:2 Exercise - Occasional exercise Times per week:1-2 times/week Sexual - Low Risk Sexually active:Yes Current partners:1 Self described orientation:Straight or heterosexual Substance Abuse - Denies Substance Abuse Tobacco - Denies Tobacco Use Family History Cancer: Father, PGF and Paternal Uncle. Cancer of colon: Sister. Heart disease: Mother. Hypertension: Mother. Skin cancer: Mother and Father. Health Status Family Member(s) Immunizations Vaccine Date Status zoster vaccine, inactivated 01/30/2023 Given Comments : [id number] 11/30/2024 influenza virus vaccine, inactivated 01/30/2023 Given tetanus/diphtheria/pertuss, acel (Tdap) 11/28/2022 Given zoster vaccine, inactivated 11/28/2022 Given Comments : [id number] 12/30/24 hepatitis B adult vaccine 08/11/2022 Given hepatitis B adult vaccine 05/05/2022 Given SARS-CoV-2 (COVID-19) mRNA-1273 vaccine 08/12/2020 Recorded SARS-CoV-2 (COVID-19) mRNA-1273 vaccine 07/13/2020 Recorded Recommendations Health Maintenance Pending(in the next year) OverDue Adult Influenza Vaccine due10/15/23and every 1year Due Adult COVID-19 Vaccination due01/03/24Unknown Frequency Adult Social Determinants of Health Screening due01/03/24Unknown Frequency Diabetic Eye Exam due01/03/24Unknown Frequency Due In Future Diabetes Management A1c not due until07/12/24and every 366day Body Mass Index not due until07/19/24and every 366day Satisfied(in the past 1 year) Satisfied Adult Influenza Vaccine on01/30/23.Satisfied by JODY Cuevas Carli Body Mass Index on01/09/23.Satisfied by JODY Cox Angela Diabetes Management A1c on07/12/23.Satisfied by Contributor_system, [employer] Electronic Signature on File Electronically Reviewed/Signed by: Luanne Lopez MD Author Signature Dt/Tm:01/03/2024 08:16 AM Department of Family Medicine Electronically Reviewed/Signed by: Luanne Lopez MD Cosigner Signature Dt/Tm: 01/03/2024 08:18AM Department of Family Medicine RER Patient Care team information Care Team Personnel Name: MD Lopez Ravishankar E Position: Physician Member Role: Primary Care Provider Address: [address] [place] [address] Care Team Related Persons Name: RUSS WISDOM"
--- OUTSIDE RECORDS SUMMARY | 2024-06-05 17:30 | External Medical Summary | Continuity of Care Document ---
Author Name Unknown Organization [address] Address [address] [place] [phone] Care Team Providers Care Ceramic Painter Name Role Phone Luanne Lopez Primary Care Physician [phone] [id number] Date(s): 01/29/24 - 01/29/24 [facility] [address], [address] [place] [address] [phone] Encounter Diagnosis HLD (hyperlipidemia)(Discharge Diagnosis) - 01/29/24 Hypertension(Discharge Diagnosis) - 10/23/23 Discharge Disposition: Home or Self Care Attending Physician: GAIL Hickey Sarah A Allergies, Adverse Reactions, Alerts No Known Medication Allergies Substance Criticality Severity Reaction Reaction Severity Status Allergy Not found in Search seasonal Active Immunizations Given and Recorded Vaccine Date Status [...] Medications allopurinol 100 mg oral tablet Start: 01/16/24 3:12:00 PM EDT, 1 tab, PO, Daily, Disp# 30 tab, Refills: 11, Pharmacy: [facility] Start Date: 01/16/24 Status: Ordered amLODIPine 2.5 mg oral tablet Start: 11/07/23 3:26:00 PM EDT, 1 tab, PO, Daily, Disp# 90 tab, Refills: 3, DOSE CHANGE, Note to Pharmacy: CANCEL PREVIOUS DOSE, Pharmacy: [facility] [id number] Start Date: 11/07/23 Status: Ordered Collagen Skin Renewal 30 mg-833.33 mg oral tablet Start: 01/09/23 11:29:00 AM EDT Start Date: 01/09/23 Status: Ordered Flonase 50 mcg/inh nasal spray Start: 11/29/21 10:49:00 AM EDT, 1 spray, each nostril, bid, Disp# 16 g, Refills: 3, in each nostrilprn sinus congestion, Pharmacy: [facility] [id number] Start Date: 11/29/21 Status: Ordered indomethacin 50 mg oral capsule Start: 12/22/22 8:06:00 AM EDT, 1 cap, PO, tid, Disp# 30 cap, Refills: 1, as needed for gout flare., PRN: as needed for arthritis, Pharmacy: [facility] [id number] Start Date: 12/22/22 Stop Date: 01/05/23 Status: Ordered magnesium gluconate 250 mg oral tablet Start: 11/28/22 7:55:00 AM EDT, 1 tab, PO, Daily Start Date: 11/28/22 Status: Ordered MetroGel 1% topical gel Start: 05/30/22 8:47:00 AM EST, 1 appl, topical, Daily, Disp# 60 g, Refills: 1, Pharmacy: [facility] [id number] Start Date: 05/30/22 Stop Date: 07/29/22 Status: Ordered spironolactone 50 mg oral tablet Start: 11/07/23 3:26:00 PM EDT, 1 tab, PO, Daily, Disp# 90 tab, Refills: 3, Pharmacy: [facility] [id number] Start Date: 11/07/23 Status: Ordered telmisartan 80 mg oral tablet Start: 05/31/23 4:11:00 PM EST, 1 tab, PO, Daily, Disp# 30 tab, Refills: 5, Pharmacy: [facility] [id number] Start Date: 05/31/23 Status: Ordered traZODone 50 mg oral tablet Start: 12/22/22 8:10:00 AM EDT, 1 tab, PO, qhs, Disp# 30 tab, Refills: 3, Pharmacy: [facility] Start Date: 12/22/22 Status: Ordered Vitamin C Start: 08/03/22 9:29:00 AM EDT Start Date: 08/03/22 Status: Ordered ZyrTEC 5 mg oral tablet Start: 01/16/23 4:16:00 PM EDT, 1 tab, PO, Daily, Disp# 100 tab, Refills: 0, PRN: as needed for allergy symptoms, Pharmacy: [facility] Start Date: 01/16/23 Status: Ordered Mental Status 01/29/24 Barriers to Learning one year None evide nt Mandatory Health Literacy Documentation Yes Health Literacy Communication Barriers N ever Primary Language Lithuanian Problem List Condition Confirmation Course Effective Dates [...] Effective Dates Health Status Clinical Service Informant HLD (hyperlipidemia) Discharge Diagnosis 01/29/24 Non-Specified Hypertension Discharge Diagnosis 10/23/23 Non-Specified Procedures Procedure Date Related Diagnosis Body [...] axis. Otherwise no acute abnormalities are seen. Vital Signs Most recent to oldest [Reference Range]: 1 Patient Weight 93 kg (01/29/24 2:03 PM) Heart Rate 77 bpm (01/29/24 2:03 PM) Respiratory Rate 18 br/min (01/29/24 2:03 PM) Blood Pressure 118/68mmHg (01/29/24 2:03 PM) BP Location # 1 Left Arm (01/29/24 2:03 PM) Social History Social History Type Response Smoking Status Never smoked cigaret cassie Sex Sex Representation Male (finding) Patient Care team information Care Team Personnel Name: MD John, Luanne Wynne Position: Physician Member Role: Primary Care Provider Address: [address] [place] [id number] [place] Care Team Related Persons Name: RUSS WISDOM"
--- OUTSIDE RECORDS SUMMARY | 2024-06-05 17:30 | External Medical Summary | Continuity of Care Document ---
Author Name Unknown Organization [facility] [address] [facility] [address] Address [address] [place], [place] [id number] Care Team Providers Care Groover And Striper Operator Name Role Phone Luanne Lopez Primary Care Physician [phone] [facility] [id number] Date(s): 01/18/24 - 01/18/24 [facility] [address] [facility] [address] [facility], [facility] [[email or web address]] [address] [place], [place] [phone] Encounter Diagnosis Essential (primary) hypertension(Final) - Discharge Disposition: Home or Self Care Attending Physician: GAIL Hickey Sarah A Referring Physician: GAIL Hickey Sarah A Allergies, Adverse [...] Daily, Disp# 30 tab, Refills: 11, Pharmacy: [id number] Start Date: 01/16/24 Status: Ordered amLODIPine 2.5 mg oral tablet Start: 11/07/23 3:26:00 PM EDT, 1 tab, PO, Daily, Disp# 90 tab, Refills: 3, DOSE CHANGE, Note to Pharmacy: CANCEL PREVIOUS DOSE, Pharmacy: [facility] [id number] Start Date: 11/07/23 Status: Ordered Collagen Skin Renewal 30 mg-833.33 mg oral tablet Start: 01/09/23 11:29:00 AM EDT Start Date: 01/09/23 Status: Ordered Flonase 50 mcg/inh nasal spray Start: 11/29/21 10:49:00 AM EDT, 1 spray, each nostril, bid, Disp# 16 g, Refills: 3, in each nostrilprn sinus congestion, Pharmacy: [facility] [id number] Start Date: 11/29/21 Status: Ordered indomethacin 50 mg oral capsule Start: 12/22/22 8:06:00 AM EDT, 1 cap, PO, tid, Disp# 30 cap, Refills: 1, as needed for gout flare., PRN: as needed for arthritis, Pharmacy: [facility] [id number] Start Date: 12/22/22 Stop Date: 01/05/23 Status: Ordered magnesium gluconate 250 mg oral tablet Start: 11/28/22 7:55:00 AM EDT, 1 tab, PO, Daily Start Date: 11/28/22 Status: Ordered MetroGel 1% topical gel Start: 05/30/22 8:47:00 AM EST, 1 appl, topical, Daily, Disp# 60 g, Refills: 1, Pharmacy: [facility] [id number] Start Date: 05/30/22 Stop Date: 07/29/22 Status: Ordered spironolactone 50 mg oral tablet Start: 11/07/23 3:26:00 PM EDT, 1 tab, PO, Daily, Disp# 90 tab, Refills: 3, Pharmacy: [facility] [id number] Start Date: 11/07/23 Status: Ordered telmisartan 80 mg oral tablet Start: 05/31/23 4:11:00 PM EST, 1 tab, PO, Daily, Disp# 30 tab, Refills: 5, Pharmacy: [facility] [id number] Start Date: 05/31/23 Status: Ordered traZODone 50 mg oral tablet Start: 12/22/22 8:10:00 AM EDT, 1 tab, PO, qhs, Disp# 30 tab, Refills: 3, Pharmacy: [id number] Start Date: 12/22/22 Status: Ordered Vitamin C Start: 08/03/22 9:29:00 AM EDT Start Date: 08/03/22 Status: Ordered ZyrTEC 5 mg oral tablet Start: 01/16/23 4:16:00 PM EDT, 1 tab, PO, Daily, Disp# 100 tab, Refills: 0, PRN: as needed for allergy symptoms, Pharmacy: [id number] Start Date: 01/16/23 Status: Ordered Problem List [...] chronic hypouricemic therapy; this discussed in detail; Procedures Procedure Date Related Diagnosis Body Site [...] axis. Otherwise no acute abnormalities are seen. Results Laboratory List Name Date Basic Metabolic Panel (BASIC METAB PANEL ) 01/18/24 Most recent to oldest [Reference Range]: 1 eGFR CKD-EPI [>60 mL/min/1.73 m2] >90 mL /min/1.73 m2 1 (01/18/24 7:46 AM) Estimated CrCl 127.68 mL/min (01/18/24 8:24 AM) Anion Gap [5-14 mmol/L] 9 mmol/L (01/18/24 7:46 AM) BUN [7-20 mg/dL] 12 mg/dL (01/18/24 7:46 AM) Ca [8.4-10.2 mg/dL] 9.6 mg/dL (01/18/24 7:46 AM) Cl- [96-107 mmol/L] 101 mmol/L (01/18/24 7:46 AM) HCO3 [22-30 mmol/L] 22 mmol/L (01/18/24 7:46 AM) Cret [0.70-1.30 mg/dL] 0.78 mg/dL (01/18/24 7:46 AM) Glu [74-106 mg/dL] 126 mg/dL *HI* (01/18/24 7:46 AM) K [3.5-5.1 mmol/L] 4.3 mmol/L (01/18/24 7:46 AM) Na [137-145 mmol/L] 132 mmol/L *LOW* (01/18/24 7:46 AM) 1Result Comment: Testing Performed By: Dept of Pathology [facility] Charlene Liu, [address] [facility] [address], [place] [address] Social History Social History Type Response Smoking Status Never smoked cigaret cassie Sex Sex Representation Male (finding) Patient Care team information Care Team Personnel Name: MD John, Luanne Wynne Position: Physician Member Role: Primary Care Provider Address: [address] [place] [address], [place] [address] [place] Care Team Related Persons Name: RUSS WISDOM"
[2024-06-05] MEDS ORDERED: LORazepam 1 MG TAB PO PRN (18:23)
[2024-06-05] MEDS ORDERED: ONDANSETRON INJ 2 MG/ML 2 ML VIAL IV PRN (18:23)
[2024-06-05 20:50] LABS: Hematocrit (blood only) 21.2 % (42.0-52.0); Hemoglobin 7.3 g/dl (14.0-18.0)
[2024-06-05] MEDS: PANTOprazole 40 MG/10 ML SYR IV SCH (21:20)
[2024-06-06 03:33] LABS: Albumin Level 2.5 gm/dl (3.4-5.0); BUN Creatinine Ratio 44.1 (10-20); Bilirubin Direct 7.6 mg/dl (0-0.2); Creatinine Clr Calc Pharmacy 54.8 ml/min; Potassium 3.4 mmol/L (3.5-5.1); Total Protein 5.9 gm/dl (6.0-8.3)
[2024-06-06 03:42] LABS: INR 1.6 (0.9-1.1); Prothrombin Time 16.5 Seconds (9.0-12.0)
[2024-06-06 05:03] LABS: Hematocrit (blood only) 20.2 % (42.0-52.0); Hemoglobin 7.1 g/dl (14.0-18.0); Mean Corpuscular Hgb Conc 35.1 g/dL (32.0-36.0); Mean Corpuscular Volume 96.7 fL (80.0-100.0); Mean Platelet Volume 10.7 fL (9.4-12.4); Platelet Count 95 K/uL (130-400); RDW Coefficient of Variation 16.3 % (11.5-14.5); RDW Standard Deviation 56.4 fL (36.4-46.3); Red Blood Count 2.09 M/uL (4.70-6.10); White Blood Count 10.78 K/ul (4.8-10.8)
[2024-06-06 05:04] LABS: Basophils # (auto) 0.06 K/uL (0.00-0.20); Basophils % (auto) 0.6 %; Eosinophils # (auto) 0.15 K/uL (0.00-0.50); Eosinophils % (auto) 1.4 %; Immature Granulocytes # (auto) 0.09 K/uL (0.01-0.20); Immature Granulocytes % (auto) 0.8 %; Lymphocytes % (auto) 6.5 %; Monocytes % (auto) 7.4 %; Neutrophils # (auto) 8.98 K/uL (1.40-6.50); Neutrophils % (auto) 83.3 %; RBC Morphology Unremarkable
--- NOTE | 2024-06-06 06:55 | Hospitalist Progress Note ---
Date of Service June 06, 2024 Assessment & Plan (1) Jaundice: (2) Alcoholic hepatitis: (3) GI bleed: (4) Anemia: (5) Hyponatremia: (6) СВЕТЛАНА (obstructive sleep apnea): (7) H/O: HTN (hypertension): (8) Neuropathy: Plan Peter Dey is a 58 year-old male with a medical history significant for gout, GERD, HTN, neuropathy, and DAVIS. Patient was admitted for abdominal ascites and cirrhosis as well as GI bleed. Cirrhosis | Abdominal Ascites -Previously diagnosed with nonalcoholic steatohepatitis with stage 2 liver fibrosis by biopsy (March 2022), was lost to follow up with [facility] hepatology over two years ago -Family reports jaundiced skin and eyes for at least 1 week, increasing abdominal girth and poor appetite for several weeks -Suspect that recent viral flu-like illness contributed to recent rapid progression of symptoms/decline in liver function -CT A/P shows: "cirrhosis with portal hypertension and four-quadrant ascites. Small umbilical hernia with minimal protrusion of an adjacent small bowel loop." -Due to anatomy of bowel loop, ED physician defers paracentesis to IR - IR paracentesis completed, pending results - EKG QT prolongation -TBili of 16.6. MELD score currently at 32 -Monitor daily liver function panel, CBC -Continue Ceftriaxone for coverage of SBP. Leukocytosis but afebrile at present. -Due to history of heavier alcohol consumption, will continue AWSS "at-risk" protocol -Negative serum alcohol level in ED, patient reports it has been >1 month since last drinking -BP more normotensive this afternoon (116/74), if patient becomes more hypotensive could consider IV albumin Gastrointestinal Bleed | Anemia -Ongoing for >1 week with bright red blood in stool -POC Hemoccult positive in the ED. Ordered stool biofire due to bowel incontinence, however this is likely due to presence of blood in stool -Hgb 7.6 on arrival to ED. Started on Octreotide in ED, now discontinued -Blood consent form signed, s/p 2u PRBCs -Transfuse for Hgb <7, repeat CBC in a.m. -Continue IV Protonix BID -GI consult ordered, Full Liquid Diet as per GI Buttocks Wound -Wound care consulted -Continue to monitor for bleeding СВЕТЛАНА- continue CPAP HTN- holding home anti-hypertensives due to current borderline hypotension Admit to: PCU/tele Diet: Full Liquid Diet VTE Prophylaxis: Contraindicated due to GI bleed Code Status: Full Code Admission and Anticipated Discharge Date Admission Date: June 05, 2024 Supervising Physician Co-Signing Physician Notes I personally examined the patient and verified frances points of history and exam, discussed case, and agree with decision making and plan documented by Dr. Fregoso. Patient is a 56-year-old male with a history of alcohol abuse, idiopathic polyneuropathy, hypertension, СВЕТЛАНА, GERD, and gout on admission after a reported 1 week gastrointestinal illness with associated fevers, nausea, vomiting, and bloody diarrhea. Patient was fluid resuscitated, diet now advanced. Paracentesis today with removal of 900 mL of ascites fluid, fluid analysis within normal limits, gram stain pending. Patient remains on ceftriaxone IV. VSS. Acute blood loss anemia likely due to to external hemorrhoids and rash of buttocks per GI. Patient will be n.p.o. at midnight for cautionary sake of possible bleeding overnight, but GI plans to do EGD and colonoscopy outpatient. On exam patient jaundiced, lungs clear b/l to auscultation, regular rate and rhythm, abdomen tender to deep palpation, fluid wave present, no guarding. Monitor hemodynamics closely. Subjective Peter Dey is a 58 year-old male with a medical history significant for gout, GERD, HTN, neuropathy, and DAVIS. Patient was admitted for abdominal ascites and cirrhosis as well as GI bleed. He was given 1 unit of RBC overnight as his Hb did not respond to the first unit of RBCs. He had a formed brown bowel movement overnight, but is still feeling 'backed up'. The nursing staff also noticed several large, bleeding wounds on his rectum, that is likely from the depends that he is using for incontinence. No chills, but mentioned he is generally feeling cold. Feels like he has more energy this morning. No headaches, no blurred vision or vision changes, no congestion, no dysphagia, he had SOB with flu-like symptoms last week but none today, no wheezing, no chest pain, tightness, or palpitations, no epigastric pain, no abdominal pain, has not had an appetite due to feeling backed up. No nausea, vommitting. Review of Systems Review of Systems: as per HPI. Physical Exam Constitutional: + ill appearing ENMT: Ears: no external ear abnormality Nose: no external nose abnormality Respiratory: normal respiratory effort, lungs clear to auscultation Cardiovascular: Extremities: no edema Gastrointestinal (Abdomen): Inspection/Auscultation: + abdomen distended (mild tenderness to palpation in left upper quadrant (04/26)) and + caput medusae present Percussion/Palpation: + ascites Skin: + jaundice bruising appreciated on IV insertion sites on left arm, several wounds noted on his buttocks Neurologic: moves all extremities and awake; no focal motor deficits Psychiatric: A+Ox3, euthymic affect Results & Data Results & Data Vital Signs (Past 12 Hours) Vital Signs Temp Pulse Pulse Resp BP BP Pulse Ox 06/06/24 04:55 36.8 C 87 16 98/61 L 99 06/06/24 04:40 36.7 C 86 18 101/62 100 06/06/24 04:40 36.8 C 87 18 108/70 99 06/06/24 04:37 36.8 C 86 18 114/69 99 06/06/24 04:24 36.6 C 86 16 95/62 L 99 06/06/24 04:12 36.9 C 88 16 99/66 L 96 06/06/24 01:31 98/58 L 06/06/24 00:06 36.5 C 87 14 91/52 L 99 06/05/24 20:35 36.4 C L 85 18 84/50 L 99 O2 Del Method 06/06/24 04:55 06/06/24 04:40 06/06/24 04:40 06/06/24 04:37 06/06/24 04:24 06/06/24 04:12 Room Air 06/06/24 01:31 06/06/24 00:06 Room Air 06/05/24 20:35 Room Air Resident Activity Tracking Resident Involvement: Resident Care Provided Care Provided: Adult Hospital Medicine
[2024-06-06 08:21] LABS: Hematocrit (blood only) 21.4 % (42.0-52.0); Hemoglobin 7.6 g/dl (14.0-18.0)
[2024-06-06] MEDS: STAT IV/IM STA (08:50)
[2024-06-06] MEDS: THIAMINE HCL 100 MG in SYRINGE 9 ML IV SCH (08:54)
[2024-06-06] MEDS: FOLIC ACID 1 MG in SYRINGE 9.8 ML IV SCH (08:55)
--- NOTE | 2024-06-06 11:09 | Gastrointestinal Consultation ---
Date of Consultation June 06, 2024 Assessment & Plan (1) Alcoholic hepatitis: (2) Jaundice: Plan Patient admitted with alcoholic hepatitis, jaundice, and reports of diarrhea with rectal bleeding. He note he was sitting in his soiled briefs at home and had also developed some rectal irritation. new cirrhosis and ascites seen on recent imaging. Current MELD 33, Maddrey DF 41.9. - recommended he cease alcohol use. - he is being set up for a paracentesis. will await results. - okay to stop octreotide drip. - patient is on ceftriaxone for SBP prophylaxis. - MELD labs every 6 months - ABD imaging w/ AFP every 6 months - EGD every 1-2 years for variceal screening. - No ETOH - No NSAIDs - Avoid hepatotoxins - Low NA diet, less than 2G daily - Less than 2G acetaminophen containing products daily. - may benefit from steroids, will discuss with MD. - recommend he be set up to see hepatology as an outpatient. - likely will need eventual colonoscopy to evaluate. - will discuss further with Dr. Zamudio, further recommendations to follow. Supervising Physician Co-Signing Physician Notes I personally saw and examined the patient. I have reviewed the chart and agree with the documentation provided by the MACHINE PLASTER MIXER including discussion about the assessment, treatment and plan. Briefly, 58 year-old male with a medical history significant for gout, GERD, HTN, neuropathy, and DAVIS who presented to the ED on 06/05 for blood in stool and reported jaundice over the past week. Over that time he notes he was not feeling well. he has a past medical history of alcohol use but tells me he quit drinking about a month, though there was an ED visit earlier this month where alcohol level came back elevated. he reports he was drinking a beer a week alongside 300ml of Minh Kennedy. He developed a flulike illness that was accompanied with nausea vomiting and diarrhea. He had fecal and urinary incontinence and was in depends and just stayed in his stool for a long period of time. This led to buttocks rashes and his hemorrhoids were flared. He states he noted brown stool with blood all around. He had a fair amount of blood that was mixed in his stool. I suspect most of the anemia is likely from external and internal hemorrhoids and the 2 buttocks rashes that he has. We will follow to make sure there is no upper GI bleeding but he states that his stool is brown. He had a colonoscopy 4 years ago as his sister had colorectal cancer and this was normal other than the hemorrhoids. Currently he has a meld of 32 with a high Madrey's discrimination function but presented with an elevated white count of 17 diffuse abdominal pain ascites and not enough fluid to tap. We made a decision to treat him empirically for SBP and he is on ceftriaxone. Unfortunately, he is not a candidate for steroids given the possibility of infection but he is clinically improving. We can start a full liquid diet on him. He needs an EGD and colonoscopy and we were planning to do this outpatient. Lets keep him n.p.o. after midnight to make sure he is not actively bleeding. GI will reassess in a.m. History of Present Illness Reason for Consultation: GIB, ETOH steatosis, jaundice Requesting Physician: Stacy Fregoso DO Attending Physician: Maggie Viramontes DO History of Present Illness Patient is a 58 year-old male with a medical history significant for gout, GERD, HTN, neuropathy, and ADVIS who presented to the ED on 06/05 for blood in stool and reported jaundice over the past week. Over that time he notes he was not feeling well. he has a past medical history of alcohol use but tells me he quit drinking about a month, though there was an ED visit earlier this month where alcohol level came back elevated. he reports he was drinking a beer a week alongside 300ml of Minh Kennedy. In the past, he had seen [facility] hepatology for DAVIS but had not seen in 2 years. While in ED, he had a CT suggestive of cirrhosis with portal hypertension and ascites. he reports that he has had some diarrhea and notes that he has been sitting in his soiled briefs at home and as such has developed some rectal irritation. He is not certain if he has true rectal bleeding or if it is from the irritation. Patient denies any current issues with nausea, vomiting, dysphagia, heartburn, abdominal pain, unintentional weight loss, melena. 06/05/24 hgb 7.6, hct 22.6, wbc 17.4, platelets 136. INR 1.7. T bili 16.6, AST 149, ALT 50, ALK 169. ETOH negative. MELD 33, Maddrey 41.9. Allergies Allergy/AdvReac Type Severity Reaction Status Date / Time pollen extracts Allergy Intermediate SNEEZING, Verified 05/18/23 20:46 CONGESTION Home Medications Medication Instructions Recorded Confirmed Type allopurinol 100 mg tablet 100 mg PO QAM 03/09/21 05/18/23 History fluticasone propionate 50 1 spray intranasal BID PRN sinus 03/09/21 05/18/23 History mcg/actuation nasal congestion spray,suspension amlodipine 2.5 mg tablet 2.5 mg PO DAILY 11/21/21 05/18/23 History cetirizine 10 mg tablet (Zyrtec) 10 mg PO DAILY PRN ALLERGIES 11/21/21 05/18/23 History chlorthalidone 50 mg tablet 50 mg PO DAILY 11/21/21 05/18/23 History telmisartan 80 mg tablet 80 mg PO DAILY 11/21/21 05/18/23 History trazodone 50 mg tablet 50 mg PO HS 05/18/23 05/18/23 History Patient History Medical History Idiopathic polyneuropathy Gout GERD (gastroesophageal reflux disease) Anxiety Parkinson disease COVID-19 No pertinent family history Surgical History No pertinent past surgical history Family History Father Prostate cancer Grandfather Prostate cancer Uncle Prostate cancer Mother Heart disease Hypertension Sister Colorectal cancer Grandfather (Maternal) Heart disease Social History (Updated 06/05/24 @ 17:28 by Stacy Fregoso DO) Smoking Status: Never smoker Hx Alcohol Use: Yes Alcohol type: beer Alcohol Intake Frequency: 2-3 x/Week Hx Substance Use: No Preferred Language: Nicaraguan Communication Ability: Effective Senior It Engineer Required: Yes and No Beliefs That Will Affect Care: None Current Living Situation: Alone Other Information That Helps Us Care for You: No Feels Safe at Home: Yes Assistive Devices: None Review of Systems Review of Systems: All systems reviewed & are unremarkable except as noted in HPI & below Physical Exam Constitutional: WD/WN, vitals as above Respiratory: normal respiratory effort, lungs clear to auscultation Cardiovascular: Rate/Rhythm: regular rate and regular rhythm Gastrointestinal (Abdomen): distended with ascites, nontender, normal bowel sounds. Skin: jaundiced Psychiatric: Orientation: alert and oriented x 3 Affect: euthymic affect Results & Data Vital Signs (Past 12 Hours) Vital Signs Temp Pulse Pulse Resp BP BP Pulse Ox 06/06/24 08:00 98.2 F 74 18 105/59 L 97 06/06/24 04:55 98.2 F 87 16 98/61 L 99 06/06/24 04:40 98.1 F 86 18 101/62 100 06/06/24 04:40 98.2 F 87 18 108/70 99 06/06/24 04:37 98.2 F 86 18 114/69 99 06/06/24 04:24 97.9 F 86 16 95/62 L 99 06/06/24 04:12 98.4 F 88 16 99/66 L 96 06/06/24 01:31 98/58 L 06/06/24 00:06 97.7 F 87 14 91/52 L 99 O2 Del Method 06/06/24 08:00 Room Air 06/06/24 04:55 06/06/24 04:40 06/06/24 04:40 06/06/24 04:37 06/06/24 04:24 06/06/24 04:12 Room Air 06/06/24 01:31 06/06/24 00:06 Room Air Laboratory Results Lab Results 06/05/24 06/05/24 06/05/24 Range/Units 11:43 11:53 12:58 WBC 17.44 H (4.8-10.8) K/ul RBC 2.29 L (4.70-6.10) M/uL Hgb 7.6 L (14.0-18.0) g/dl Hct 22.6 L (42.0-52.0) % MCV 98.7 (80.0-100.0) fL MCH 33.2 (25.0-34.0) pg MCHC 33.6 (32.0-36.0) g/dL RDW Std Deviation 61.5 H (36.4-46.3) fL RDW Coeff of Sean 17.2 H (11.5-14.5) % Plt Count 136 (130-400) K/uL MPV 11.1 (9.4-12.4) fL Immature Gran % (Auto) % Neut % (Auto) % Lymph % (Auto) % [place] % (Auto) % Eos % (Auto) % Baso % (Auto) % Neut # (Auto) (1.40-6.50) K/uL Lymph # (Auto) (1.20-3.40) K/uL [place] # (Auto) (0.11-0.59) K/uL Eos # (Auto) (0.00-0.50) K/uL Baso # (Auto) (0.00-0.20) K/uL Immature Gran # (Auto) (0.01-0.20) K/uL RBC Morphology PT 17.5 H (9.0-12.0) Seconds INR 1.7 H (0.9-1.1) APTT 31 (21-31) Seconds PTT Ratio 1.2 Sodium 127 L (136-145) mmol/L Potassium 3.8 (3.5-5.1) mmol/L Chloride 96 L (98-107) mmol/L Carbon Dioxide 19 L (21-32) mmol/L Anion Gap 12 H (3-11) BUN 90 H (6-23) mg/dl Creatinine 1.85 H (0.6-1.4) mg/dl Est Cr Clr Drug Dosing Not Reportable eGFR 41.96 BUN/Creatinine Ratio 48.6 H (10-20) Glucose 123 H (70-99(Fasting)) mg/dl Calcium 8.7 (8.6-10.3) mg/dl Magnesium 1.7 (1.7-2.4) mg/dl Total Bilirubin 16.6 H (0.2-1.0) mg/dl Direct Bilirubin (0-0.2) mg/dl AST 149 H (13-39) U/L ALT 50 (7-52) U/L Alkaline Phosphatase 169 H (34-104) U/L Troponin I High Sens 7.7 (0-20) pg/ml Total Protein 6.9 (6.0-8.3) gm/dl Albumin 2.8 L (3.4-5.0) gm/dl Globulin 4.1 H (2.5-4.0) gm/dl Albumin/Globulin Ratio 0.7 L (0.9-2) Lipase TNP Fluid Comment POC Stool Occult Blood Positive A (Negative) Ethyl Alcohol mg/dL (<10.0) mg/dl Adenovirus (PCR) Not Detected (NotDetected) B. pertussis DNA (PCR) Not Detected (NotDetected) B.parapertussis DNA PCR Not Detected (NotDetected) C. pneumoniae DNA (PCR) Not Detected (NotDetected) Coronavirus OC43 (PCR) Not Detected (NotDetected) Coronavirus HKU1 (PCR) Not Detected (NotDetected) Coronavirus 229E (PCR) Not Detected (NotDetected) SARS-CoV-2 (PCR) Not Detected (NotDetected) Coronavirus NL63 (PCR) Not Detected (NotDetected) Human Metapneumovir PCR Not Detected (NotDetected) Influenza Type A (PCR) Not Detected (NotDetected) Influenza Type B (PCR) Not Detected (NotDetected) M. pneumoniae (PCR) Not Detected (NotDetected) Parainfluenza 1 (PCR) Not Detected (NotDetected) Parainfluenza 2 (PCR) Not Detected (NotDetected) Parainfluenza 3 (PCR) Not Detected (NotDetected) Parainfluenza 4 (PCR) Not Detected (NotDetected) RSV (PCR) Not Detected (NotDetected) Entero/Rhino (PCR) Not Detected (NotDetected) Blood Type O Positive Blood Type Recheck Antibody Screen NEGATIVE Crossmatch See Detail 06/05/24 06/05/24 06/05/24 Range/Units 13:05 15:17 20:09 WBC (4.8-10.8) K/ul RBC (4.70-6.10) M/uL Hgb 7.3 L (14.0-18.0) g/dl Hct 21.2 L (42.0-52.0) % MCV (80.0-100.0) fL MCH (25.0-34.0) pg MCHC (32.0-36.0) g/dL RDW Std Deviation (36.4-46.3) fL RDW Coeff of Sean (11.5-14.5) % Plt Count (130-400) K/uL MPV (9.4-12.4) fL Immature Gran % (Auto) % Neut % (Auto) % Lymph % (Auto) % [place] % (Auto) % Eos % (Auto) % Baso % (Auto) % Neut # (Auto) (1.40-6.50) K/uL Lymph # (Auto) (1.20-3.40) K/uL [place] # (Auto) (0.11-0.59) K/uL Eos # (Auto) (0.00-0.50) K/uL Baso # (Auto) (0.00-0.20) K/uL Immature Gran # (Auto) (0.01-0.20) K/uL RBC Morphology PT (9.0-12.0) Seconds INR (0.9-1.1) APTT (21-31) Seconds PTT Ratio Sodium (136-145) mmol/L Potassium (3.5-5.1) mmol/L Chloride (98-107) mmol/L Carbon Dioxide (21-32) mmol/L Anion Gap (3-11) BUN (6-23) mg/dl Creatinine (0.6-1.4) mg/dl Est Cr Clr Drug Dosing eGFR BUN/Creatinine Ratio (10-20) Glucose (70-99(Fasting)) mg/dl Calcium (8.6-10.3) mg/dl Magnesium (1.7-2.4) mg/dl Total Bilirubin (0.2-1.0) mg/dl Direct Bilirubin (0-0.2) mg/dl AST (13-39) U/L ALT (7-52) U/L Alkaline Phosphatase (34-104) U/L Troponin I High Sens (0-20) pg/ml Total Protein (6.0-8.3) gm/dl Albumin (3.4-5.0) gm/dl Globulin (2.5-4.0) gm/dl Albumin/Globulin Ratio (0.9-2) Lipase Fluid Comment POC Stool Occult Blood (Negative) Ethyl Alcohol mg/dL < 10.0 (<10.0) mg/dl Adenovirus (PCR) (NotDetected) B. pertussis DNA (PCR) (NotDetected) B.parapertussis DNA PCR (NotDetected) C. pneumoniae DNA (PCR) (NotDetected) Coronavirus OC43 (PCR) (NotDetected) Coronavirus HKU1 (PCR) (NotDetected) Coronavirus 229E (PCR) (NotDetected) SARS-CoV-2 (PCR) (NotDetected) Coronavirus NL63 (PCR) (NotDetected) Human Metapneumovir PCR (NotDetected) Influenza Type A (PCR) (NotDetected) Influenza Type B (PCR) (NotDetected) M. pneumoniae (PCR) (NotDetected) Parainfluenza 1 (PCR) (NotDetected) Parainfluenza 2 (PCR) (NotDetected) Parainfluenza 3 (PCR) (NotDetected) Parainfluenza 4 (PCR) (NotDetected) RSV (PCR) (NotDetected) Entero/Rhino (PCR) (NotDetected) Blood Type Blood Type Recheck O Positive Antibody Screen Crossmatch 06/06/24 06/06/24 06/06/24 Range/Units 03:06 07:51 Unknown WBC 10.78 (4.8-10.8) K/ul RBC 2.09 L (4.70-6.10) M/uL Hgb 7.1 L 7.6 L (14.0-18.0) g/dl Hct 20.2 L* 21.4 L (42.0-52.0) % MCV 96.7 (80.0-100.0) fL MCH 34.0 (25.0-34.0) pg MCHC 35.1 (32.0-36.0) g/dL RDW Std Deviation 56.4 H (36.4-46.3) fL RDW Coeff of Sean 16.3 H (11.5-14.5) % Plt Count 95 L (130-400) K/uL MPV 10.7 (9.4-12.4) fL Immature Gran % (Auto) 0.8 % Neut % (Auto) 83.3 % Lymph % (Auto) 6.5 % [place] % (Auto) 7.4 % Eos % (Auto) 1.4 % Baso % (Auto) 0.6 % Neut # (Auto) 8.98 H (1.40-6.50) K/uL Lymph # (Auto) 0.70 L (1.20-3.40) K/uL [place] # (Auto) 0.80 H (0.11-0.59) K/uL Eos # (Auto) 0.15 (0.00-0.50) K/uL Baso # (Auto) 0.06 (0.00-0.20) K/uL Immature Gran # (Auto) 0.09 (0.01-0.20) K/uL RBC Morphology Unremarkable PT 16.5 H (9.0-12.0) Seconds INR 1.6 H (0.9-1.1) APTT (21-31) Seconds PTT Ratio Sodium 130 L (136-145) mmol/L Potassium 3.4 L (3.5-5.1) mmol/L Chloride 99 (98-107) mmol/L Carbon Dioxide 21 (21-32) mmol/L Anion Gap 10 (3-11) BUN 82 H (6-23) mg/dl Creatinine 1.86 H (0.6-1.4) mg/dl Est Cr Clr Drug Dosing 54.8 eGFR 41.69 BUN/Creatinine Ratio 44.1 H (10-20) Glucose 110 H (70-99(Fasting)) mg/dl Calcium 8.0 L (8.6-10.3) mg/dl Magnesium (1.7-2.4) mg/dl Total Bilirubin 14.0 H (0.2-1.0) mg/dl Direct Bilirubin 7.6 H (0-0.2) mg/dl AST 150 H (13-39) U/L ALT 49 (7-52) U/L Alkaline Phosphatase 141 H (34-104) U/L Troponin I High Sens (0-20) pg/ml Total Protein 5.9 L (6.0-8.3) gm/dl Albumin 2.5 L (3.4-5.0) gm/dl Globulin (2.5-4.0) gm/dl Albumin/Globulin Ratio (0.9-2) Lipase Fluid Comment POC Stool Occult Blood (Negative) Ethyl Alcohol mg/dL (<10.0) mg/dl Adenovirus (PCR) (NotDetected) B. pertussis DNA (PCR) (NotDetected) B.parapertussis DNA PCR (NotDetected) C. pneumoniae DNA (PCR) (NotDetected) Coronavirus OC43 (PCR) (NotDetected) Coronavirus HKU1 (PCR) (NotDetected) Coronavirus 229E (PCR) (NotDetected) SARS-CoV-2 (PCR) (NotDetected) Coronavirus NL63 (PCR) (NotDetected) Human Metapneumovir PCR (NotDetected) Influenza Type A (PCR) (NotDetected) Influenza Type B (PCR) (NotDetected) M. pneumoniae (PCR) (NotDetected) Parainfluenza 1 (PCR) (NotDetected) Parainfluenza 2 (PCR) (NotDetected) Parainfluenza 3 (PCR) (NotDetected) Parainfluenza 4 (PCR) (NotDetected) RSV (PCR) (NotDetected) Entero/Rhino (PCR) (NotDetected) Blood Type Blood Type Recheck Antibody Screen Crossmatch Coding Level of Care Code 17855 INT INP/OBS CARE MIN Diagnoses Alcoholic hepatitis K70.10 Jaundice R17
[2024-06-06] MEDS: cefTRIAXone SODIUM 2,000 MG/50 ML BAG IV SCH (13:30)
[2024-06-06 13:44] LABS: Appearance Peritoneal Fluid Clear; Color Peritoneal Fluid Yellow; RBC Peritoneal Fluid Auto < 2000 /uL; WBC Peritoneal Fluid Auto 22 /ul (0-300)
[2024-06-06 14:18] LABS: Basophils, Fluid 2 %; Lymphocytes, Fluid 14 %; Mono,Macrophage,Mesothelial 60 %; Neutrophils, Fluid 24 %
--- NOTE | 2024-06-06 14:58 | Ultrasound Report ---
Ultrasound guided paracentesis. Clinical indication: ascites. Procedure: Informed consent was obtained from the patient. Sonographic examination revealed a small amount of ascites. A pocket was identified in the right lower quadrant. The skin of the right lowe r quadrant was cleaned in the usual fashion. Lidocaine solution was utilized for skin anesthesia. Ut ilizing ultrasound guidance, a 5 Lithuanian catheter was introduced into the pocket and 900 ml of govea fluid drained and sent to the lab. The catheter was removed. Complication: No immediate. IMPRESSION: Ultrasound guided paracentesis as described above. Performed, dictated, and signed by Tyrone Fan PA-C; to be co-signed by Dr. Keyshawn Newell. Electronically signed by: Keyshawn Newell M.D. 06/06/2024 4:03 PM
[2024-06-06 15:08] LABS: Hematocrit (blood only) 23.1 % (42.0-52.0)
[2024-06-07] MEDS: PLASMA-LYTE A 1,000 ML IV SCH (00:30)
[2024-06-07 07:19] LABS: Albumin Level 2.2 gm/dl (3.4-5.0); Bilirubin Direct 6.9 mg/dl (0-0.2); Bilirubin,Total 13.7 mg/dl (0.2-1.0); Total Protein 5.5 gm/dl (6.0-8.3)
[2024-06-07 07:27] LABS: Basophils # (auto) 0.07 K/uL (0.00-0.20); Basophils % (auto) 0.9 %; Eosinophils # (auto) 0.17 K/uL (0.00-0.50); Eosinophils % (auto) 2.3 %; Immature Granulocytes # (auto) 0.08 K/uL (0.01-0.20); Immature Granulocytes % (auto) 1.1 %; Lymphocytes # (auto) 0.75 K/uL (1.20-3.40); Lymphocytes % (auto) 10.1 %; Mean Corpuscular Hemoglobin 33.5 pg (25.0-34.0); Mean Corpuscular Hgb Conc 35.1 g/dL (32.0-36.0); Mean Corpuscular Volume 95.5 fL (80.0-100.0); Mean Platelet Volume 10.3 fL (9.4-12.4); Monocytes # (auto) 0.56 K/uL (0.11-0.59); Monocytes % (auto) 7.5 %; Neutrophils # (auto) 5.81 K/uL (1.40-6.50); Neutrophils % (auto) 78.1 %; Platelet Count 74 K/uL (130-400); RBC Morphology Unremarkable; RDW Coefficient of Variation 17.7 % (11.5-14.5); RDW Standard Deviation 60.7 fL (36.4-46.3); White Blood Count 7.44 K/ul (4.8-10.8)
[2024-06-07 07:45] LABS: Hematocrit (blood only) 19.1 % (42.0-52.0); Hemoglobin 6.7 g/dl (14.0-18.0)
[2024-06-07] MEDS ORDERED: SODIUM CHLORIDE 0.9% 50 ML IV PRN (08:17)
[2024-06-07] MEDS ORDERED: SODIUM CHLORIDE 0.9% 100 ML IV PRN (08:17)
--- NOTE | 2024-06-07 09:31 | Gastroenterology Progress Note ---
Date of Service June 07, 2024 Assessment & Plan (1) Anemia: (2) Alcoholic hepatitis: (3) GI bleed: Plan I reviewed case with Dr. Zamudio. In light of his drop in hgb over night and since patient has been NPO, will plan to proceed with an EGD and Flex sig today to further evaluate. - will give fleets enema this morning. - keep NPO. Admission and Anticipated Discharge Date Admission Date: June 05, 2024 Subjective Patient had a drop in hgb over night from 8 to 6.7. he does not note any further rectal bleeding. no melena. some abdominal discomfort from where he had paracentesis. otherwise no GI complaints. Review of Systems Review of Systems: All systems reviewed & are unremarkable except as noted in HPI & below Physical Exam Constitutional: WD/WN, vitals as above Respiratory: normal respiratory effort, lungs clear to auscultation Cardiovascular: Rate/Rhythm: regular rate and regular rhythm Gastrointestinal (Abdomen): normal bowel sounds, soft, nontender, no hepatosplenomegaly Psychiatric: Orientation: alert and oriented x 3 Affect: euthymic affect Results & Data Results & Data Vital Signs (Past 12 Hours) Vital Signs Temp Pulse Pulse Resp BP BP Pulse Ox 06/07/24 08:06 06/07/24 07:57 98.4 F 81 17 105/57 L 98 06/07/24 03:00 98.1 F 89 19 98/52 L 96 06/06/24 23:59 82 06/06/24 23:00 98.1 F 86 17 118/62 98 O2 Del Method 06/07/24 08:06 Room Air 06/07/24 07:57 Room Air 06/07/24 03:00 Room Air 06/06/24 23:59 06/06/24 23:00 Room Air Coding Diagnoses Anemia D64.9 Alcoholic hepatitis K70.10 GI bleed K92.2
--- NOTE | 2024-06-07 09:34 | History & Physical Bridge Note ---
Date of Service June 07, 2024 History & Physical Bridge Note I have examined the patient, reviewed the History & Physical and in the interval since the performance of the History & Physical I have noted the following changes of clinical significance: Patient had a drop in hgb over night from 8 to 6.7. he does not note any further rectal bleeding. no melena. some abdominal discomfort from where he had paracentesis. otherwise no GI complaints. I reviewed case with Dr. Zamudio. In light of his drop in hgb over night and since patient has been NPO, will plan to proceed with an EGD and Flex sig today to further evaluate. - will give fleets enema this morning. - keep NPO. - continue protonix IV bid. Supervising Physician Co-Signing Physician Notes I personally saw and examined the patient. I have reviewed the chart and agree w ith the documentation provided by the OBSTETRICS AND GYNECOLOGY PROFESSOR including discussion about the assessment, treatment and plan. Briefly, no bleeding but noted to have again hemoglobin drop. Will do an EGD and Flex sig.
--- NOTE | 2024-06-07 10:10 | Hospitalist Progress Note ---
Date of Service June 07, 2024 Assessment & Plan (1) Jaundice: (2) Alcoholic hepatitis: (3) GI bleed: (4) Anemia: (5) Hyponatremia: (6) СВЕТЛАНА (obstructive sleep apnea): (7) H/O: HTN (hypertension): (8) Neuropathy: Plan Peter Dey is a 58 year-old male with a medical history significant for gout, GERD, HTN, neuropathy, and DAVIS. Patient was admitted for abdominal ascites and cirrhosis as well as GI bleed. 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 Small umbilical hernia with minimal protrusion of an adjacent small bowel loop." -Due to anatomy of bowel loop, ED physician defers paracentesis to IR - IR paracentesis completed - - Negative for malignancy. Scattered histiocytes and mesothelial cells - EKG QT prolongation -TBili of 16.6. MELD score currently at 32 -Monitor daily liver function panel, CBC -Continue Ceftriafxone for coverage of SBP. Leukocytosis but afebrile at present. -Due to history of heavier alcohol consumption, will order AWSS "at-risk" protocol -Negative serum alcohol level in ED, patient reports it has been >1 month since last drinking -BP has been 100s systolic while in ED, if patient becomes more hypotensive could consider IV albumin - LFTs upending: AST 150->187, ALT: 49->57 - LFTs upending: AST 150->187, ALT: 49->57 Anemia: Plan: 1 unit RBCs EGD and Flex sig Gastrointestinal Bleed | Anemia -Ongoing for >1 week with bright red blood in stool -POC Hemoccult positive in the ED. Ordered stool biofire due to bowel incontinence, however this is likely due to presence of blood in stool -Hgb 7.6 on arrival to ED. Started on Octreotide in ED -Blood consent form signed -As of 06/07: total of 3u PRBCs given since admission -Monitor H&H q6h, transfuse for Hgb <7 -Continue IV Protonix BID, maintenance IV fluids ordered -GI consulted - patient has been NPO since 12pm, plan to proceed with an EGD and Flex sig today to further evaluate. Will give fleets enema this morning, keep IV Protonix - UA ordered Buttocks Wound - Wound care consulted - Continue to monitor for bleeding СВЕТЛАНА- continue CPAP HTN- holding home anti-hypertensives due to current borderline hypotension Admit to: PCU/tele Diet: NPO VTE Prophylaxis: Contraindicated due to GI bleed Code Status: Full Code Admission and Anticipated Discharge Date Admission Date: June 05, 2024 Supervising Physician Co-Signing Physician Notes I personally examined the patient and verified frances points of history and exam, discussed case, and agree with decision making and plan documented by Dr. Ren erwin. At the time of our visit, parents at bedside. Patient feels feeling better overall - he is hungry (NPO for afternoon EGD and Flex Sig). VSS Jaundice CV regular Lungs clear with non labored respirations Hgb this morning 6.7, down from 8.0 Bilirubin 13.7, AST 187, ALT 56 Jaundice Alcoholic hepatitis Acute blood loss anemia Transfuse and monitor EGD and felx sig today Additional per resident documentation Subjective Peter Dey is a 58 year-old male with a medical history significant for gout, GERD, HTN, neuropathy, and DAVIS. Patient was admitted for abdominal ascites and cirrhosis as well as GI bleed. 1 additional unit of RBC ordered (now 3 total). No new movement overnight. Was seen by wound care for management. He said he is feeling well today and is in no pain, he has mild discomfort from his incision site. He said he is hungry and hopes to eat normal food soon, for now he's NPO, and waiting on GI consult for next steps for a potential scope today. No headaches, no blurred vision or vision changes, no congestion, no dysphagia, no wheezing, no chest pain, tightness, or palpitations, no epigastric pain, no abdominal pain, has not had an appetite due to feeling backed up. No nausea, vommitting. Only pain is from incision site from paracentesis. Review of Systems Review of Systems: as per HPI. Physical Exam Constitutional: + ill appearing Eyes: scleral icterus ENMT: Ears: no external ear abnormality Nose: no external nose abnormality Respiratory: normal respiratory effort, lungs clear to auscultation Cardiovascular: Extremities: no edema Gastrointestinal (Abdomen): Inspection/Auscultation: + caput medusae present (slight distention, but marginally less than yesterday. ) Percussion/Palpation: + ascites Skin: + jaundice bruising appreciated on IV insertion sites on left arm, several wounds noted on his buttocks Neurologic: moves all extremities and awake; no focal motor deficits Psychiatric: A+Ox3, euthymic affect Results & Data Results & Data Vital Signs (Past 12 Hours) Vital Signs Temp Pulse Pulse Resp BP BP Pulse Ox 06/07/24 03:00 36.7 C 89 19 98/52 L 96 06/06/24 23:59 82 06/06/24 23:00 36.7 C 86 17 118/62 98 O2 Del Method 06/07/24 03:00 Room Air 06/06/24 23:59 06/06/24 23:00 Room Air
[2024-06-07] MEDS: SOD PHOSPHATE/SOD BIPHOSPHATE ENEMA 132 ML BTL PR ONE (12:02)
[2024-06-07 12:25] LABS: Appearance Urine Clear (Clear); Bilirubin Urine 2+ (Negative); Blood Urine Negative (Negative); Color Urine Dark Yellow; Glucose Urine UA Negative (Negative); Ketones Urine Negative (Negative); Leukocyte Esterase Urine Negative (Negative); Nitrite Urine Negative (Negative); Protein Urine Negative (Negative); Specific Gravity Urine 1.017 (1.000-1.030); Urobilinogen Urine Negative (Negative)
[2024-06-07 12:57] LABS: Hematocrit (blood only) 23.3 % (42.0-52.0); Hemoglobin 8.1 g/dl (14.0-18.0)
--- NOTE | 2024-06-07 13:36 | Anesthesiology Consultation ---
Date of Service June 07, 2024 Assessment & Plan Chart Review Chart Review: Acceptable Risk for Surgery and Patient NOT seen in Pre Admission Testing Consults Requested none ASA ASA4 Proposed Anesthesia Anesthesia Type: MAC Risk / Benefits Reviewed With: PT / POA / Parent / Guardian, Accepts Plan and Informed Consent Obtained History Surgery Operation Date: 06/07/24 16:30 Proposed Procedures p Esophagogastroduodenoscopy Lizz Zamudio MD s Flexible Sigmoidoscopy Lizz Zamudio MD Height/Weight Height: 6 ft 1 in Weight: 100.8 kg Allergies Allergy/AdvReac Type Severity Reaction Status Date / Time pollen extracts Allergy Intermediate SNEEZING, Verified 05/18/23 20:46 CONGESTION Medications Home Medications Medication Instructions Recorded Confirmed Last Taken allopurinol 100 mg tablet 100 mg PO QAM 03/09/21 05/18/23 04/05/22 05:50 fluticasone propionate 50 1 spray intranasal BID PRN sinus 03/09/21 05/18/23 Unknown mcg/actuation nasal congestion spray,suspension amlodipine 2.5 mg tablet 2.5 mg PO DAILY 11/21/21 05/18/23 04/04/22 05:00 cetirizine 10 mg tablet (Zyrtec) 10 mg PO DAILY PRN ALLERGIES 11/21/21 05/18/23 Unknown chlorthalidone 50 mg tablet 50 mg PO DAILY 11/21/21 05/18/23 04/04/22 05:50 telmisartan 80 mg tablet 80 mg PO DAILY 11/21/21 05/18/23 04/04/22 05:00 trazodone 50 mg tablet 50 mg PO HS 05/18/23 05/18/23 Unknown Active Medications Generic Name Dose Route Start Last Admin Trade Name Freq PRN Reason Stop Dose Admin Folic Acid 1 mg/ Syringe 10 mls @ 5 mls/min 06/06/24 09:00 06/07/24 09:55 IV 07/06/24 08:59 5 mls/min QAM [place] Administration Thiamine HCl 100 mg/ Syringe 10 mls @ 2 mls/min 06/06/24 09:00 06/07/24 11:00 IV 07/06/24 08:59 2 mls/min QAM [place] Administration Pantoprazole Sodium 40 mg in 10 mls @ 5 mls/min 06/05/24 21:00 06/07/24 09:57 Protonix IV 07/05/24 20:59 5 mls/min BID [place] Administration Ceftriaxone Sodium 2,000 mg in 50 mls @ 100 mls/hr 06/06/24 14:00 06/06/24 14:03 Rocephin IV 06/16/24 13:59 Infused Q24H [place] Infusion Past Medical History Medical History Idiopathic polyneuropathy Gout GERD (gastroesophageal reflux disease) Anxiety Parkinson disease COVID-19 No pertinent family history Exercise / Class Metabolic Activity II 4-5 Yardwork/Stairs/Walk up hill Past Family History Family History Father Prostate cancer Grandfather Prostate cancer Uncle Prostate cancer Mother Heart disease Hypertension Sister Colorectal cancer Grandfather (Maternal) Heart disease Past Surgical History Surgical History No pertinent past surgical history Past Anesthesia History No Hx of Anesthesia Complications and No Family Hx of Anesthesia Complications History of PONV No Hx of PONV and No Hx of Motion Sickness Social History Smoking Status: Never smoker Hx Alcohol Use: Yes Alcohol type: beer alcohol intake frequency: a few times a week Alcohol Intake Frequency Comment: quit 4 weeks ago Hx Substance Use: No Physical Exam Vital Signs Last Vital Signs Temp 36.8 C 06/07/24 12:30 Pulse 87 06/07/24 12:30 Resp 18 06/07/24 12:30 BP 101/60 06/07/24 12:30 Pulse Ox 98 06/07/24 12:30 O2 Del Method Room Air 06/07/24 08:06 O2 Flow Rate 0 06/05/24 14:49 ENMT Mouth: no dentition abnormality Thyromental Distance: > or= 3.5 Finger Breadths Mallampati Class: II Neck normal visual inspection Respiratory normal respiratory effort Auscultation: lungs clear to auscultation bilaterally Cardiovascular Rate/Rhythm: regular rate and regular rhythm Skin Jaundice Psychiatric Orientation: alert Testing Laboratory Results 06/07/24 12:37 06/06/24 03:06 PT 16.5 Seconds (9.0-12.0) H 06/06/24 03:06 INR 1.6 (0.9-1.1) H 06/06/24 03:06 APTT 31 Seconds (21-31) 06/05/24 11:53 Urine Color Dark Yellow 06/07/24 11:50 Urine Appearance Clear (Clear) 06/07/24 11:50 Urine pH 6.0 (4.5-7.5) 06/07/24 11:50 Ur Specific [place] 1.017 (1.000-1.030) 06/07/24 11:50 Urine Protein Negative (Negative) 06/07/24 11:50 Urine Glucose (UA) Negative (Negative) 06/07/24 11:50 Urine Ketones Negative (Negative) 06/07/24 11:50 Urine Nitrite Negative (Negative) 06/07/24 11:50 Ur Leukocyte Esterase Negative (Negative) 06/07/24 11:50 Blood Type O Positive 06/05/24 11:53 Antibody Screen NEGATIVE 06/05/24 11:53 06/06/24 Unknown Gram Stain - Final Peritoneal Fluid Aerobic and Anaerobic Culture - Preliminary No growth to date.
--- NOTE | 2024-06-07 14:13 | GI REPORT ---
[facility] Patient: RUSS WISDOM : 1965 Sex at : Male Age: 58 Years Procedure: Upper GI endoscopy Date: 06/07/2024 Attending Physician: Ramón Zamudio MD Referring MD: Wali Martin Indications: - Suspected upper gastrointestinal bleeding - Cirrhosis rule out esophageal varices Medications: - Monitored Anesthesia Care Complications: - No immediate complications. Estimated Blood Loss: - Estimated blood loss: None. Procedure: - Prior to the procedure, a History and Physical was performed, and patient medications and allergies were reviewed. The patient's tolerance of previous anesthesia was also reviewed. The risks and benefits of the procedure and the sedation options and risks were discussed with the patient. All questions were answered, and informed consent was obtained. Prior Anticoagulants: The patient has taken no anticoagulant or antiplatelet agents. ASA Grade Assessment: IV - A patient with severe systemic disease that is a constant threat to life. After reviewing the risks and benefits, the patient was deemed in satisfactory condition to undergo the procedure. - The pediatric colonoscope was introduced through the mouth and advanced to the third part of the duodenum. - The upper GI endoscopy was accomplished without difficulty. - The patient tolerated the procedure well. Findings: - The examined esophagus was normal. NO varices noted - Severe portal hypertensive gastropathy was found in the entire examined stomach. It bled on contact. - The examined duodenum was normal. Impression: - Normal esophagus. - NO varices noted - Portal hypertensive gastropathy. - It bled on contact. - Normal examined duodenum. - No specimens collected. Recommendation: - Discharge patient to home (ambulatory). - Continue present medications. - Await pathology results. - Return to primary care physician as previously scheduled. - Patient has a contact number available for emergencies. The signs and symptoms of potential delayed complications were discussed with the patient. Return to normal activities tomorrow. Written discharge instructions were provided to the patient. - start full liquid diet and advance. The source of bleeding is likely from hemorrhoids and portal hypertensive gastropathy. There is no active bleeding present at this point. Unfortunately, due to hypertension patient is not a great candidate for nadolol. He is also not a candidate for TIPS although he does not need this acutely as his MELD is 32. Finally he is not a candidate for liver transplant because he has been actively drinking. Honestly he needs serious inpatient versus outpatient rehab and AA Procedure Code(s): - 43417, Esophagogastroduodenoscopy, flexible, transoral; diagnostic, including collection of specimen(s) by brushing or washing, when performed (separate procedure) Diagnosis Code(s): - K74.60, Unspecified cirrhosis of liver - K76.6, Portal hypertension - K31.89, Other diseases of stomach and duodenum CPT(R) - 2022 copyright [employer]. All Rights Reserved. The CPT codes, CCI edits and ICD codes generated are intended as suggestions and were generated based on input data. These codes are preliminary and upon hcc coders review may be revised to meet current compliance and payer requirements. The provider is responsible for the final determination of appropriate codes, and modifiers. Ramón Zamudio MD This document has been electronically signed. Note Initiated:06/07/2024 Note Completed:06/07/2024 2:12 PM \\[email or web address]\[email or web address]\Results\LIVE\[id number]
--- NOTE | 2024-06-07 14:15 | GI REPORT ---
[facility] Patient: RUSS WISDOM : 1965 Sex at : Male Age: 58 Years Procedure: Flexible Sigmoidoscopy Date: 06/07/2024 Attending Physician: Ramón Zamudio MD Referring MD: Wali Martin Indications: - Rectal hemorrhage Medications: - See the Anesthesia note for documentation of the administered medications Complications: - No immediate complications. Procedure: - Prior to the procedure, a History and Physical was performed, and patient medications and allergies were reviewed. The patient's tolerance of previous anesthesia was also reviewed. The risks and benefits of the procedure and the sedation options and risks were discussed with the patient. All questions were answered, and informed consent was obtained. Prior Anticoagulants: The patient has taken no anticoagulant or antiplatelet agents. ASA Grade Assessment: IV - A patient with severe systemic disease that is a constant threat to life. After reviewing the risks and benefits, the patient was deemed in satisfactory condition to undergo the procedure. - The pediatric colonoscope was introduced through the anus and advanced to the left transverse colon. - The flexible sigmoidoscopy was accomplished without difficulty. - The patient tolerated the procedure well. - The quality of the bowel preparation was adequate. Findings: - Hemorrhoids were found on perianal exam. - Internal hemorrhoids were found during retroflexion. The hemorrhoids were Grade II (internal hemorrhoids that prolapse but reduce spontaneously). - Multiple medium-mouthed diverticula were found in the sigmoid colon. - NO active bleeding noted. Impression: - Hemorrhoids found on perianal exam. - Internal hemorrhoids. - Diverticulosis in the sigmoid colon. - NO active bleeding noted. - No specimens collected. Recommendation: Procedure Code(s): - 12803, Sigmoidoscopy, flexible; diagnostic, including collection of specimen(s) by brushing or washing, when performed (separate procedure) Diagnosis Code(s): - K62.5, Hemorrhage of anus and rectum - K64.1, Second degree hemorrhoids - K57.30, Diverticulosis of large intestine without perforation or abscess without bleeding CPT(R) - 2023 copyright [employer]. All Rights Reserved. The CPT codes, CCI edits and ICD codes generated are intended as suggestions and were generated based on input data. These codes are preliminary and upon mutton puncher review may be revised to meet current compliance and payer requirements. The provider is responsible for the final determination of appropriate codes, and modifiers. Ramón Zamudio MD This document has been electronically signed. Note Initiated:06/07/2024 Note Completed:06/07/2024 2:14 PM \\[email or web address]\[email or web address]\Provation\Results\LIVE\[id number]
--- NOTE | 2024-06-07 14:25 | Anesthesiology Progress Note ---
Date of Service June 07, 2024 Anesthesia Post Procedure Vital Signs Vital Signs: Temp Pulse Pulse Pulse Resp BP BP 06/07/24 14:18 78 18 06/07/24 14:03 73 18 06/07/24 13:31 37 C 82 18 06/07/24 12:30 36.8 C 87 18 101/60 06/07/24 11:38 37.0 C 82 18 103/63 06/07/24 10:38 36.8 C 84 17 113/67 06/07/24 10:08 36.8 C 84 17 97/55 L 06/07/24 09:53 36.7 C 78 17 94/49 L 06/07/24 09:32 36.8 C 79 18 96/55 L 06/07/24 08:06 06/07/24 07:57 36.9 C 81 17 06/07/24 07:00 86 06/07/24 03:00 36.7 C 89 19 06/06/24 23:59 82 06/06/24 23:00 36.7 C 86 17 118/62 06/06/24 19:00 36.6 C 80 16 108/65 06/06/24 17:48 06/06/24 15:49 36.5 C 74 18 116/74 BP Pulse Ox O2 Del Method 06/07/24 14:18 98/57 L 98 Room Air 06/07/24 14:03 93/42 L 97 Room Air 06/07/24 13:31 100/56 L 99 Room Air 06/07/24 12:30 98 06/07/24 11:38 97 06/07/24 10:38 97 06/07/24 10:08 99 06/07/24 09:53 97 06/07/24 09:32 96 06/07/24 08:06 Room Air 06/07/24 07:57 105/57 L 98 Room Air 06/07/24 07:00 06/07/24 03:00 98/52 L 96 Room Air 06/06/24 23:59 06/06/24 23:00 98 Room Air 06/06/24 19:00 99 Room Air 06/06/24 17:48 Room Air 06/06/24 15:49 96 Room Air Transfer of Care Handoff Completed per policy Notes Mental Status: alert / awake / arousable Patient Amnestic to Procedure: Yes Nausea / Vomiting: adequately controlled Pain: adequately controlled Airway Patency, RR, SpO2: stable & adequate BP & HR: stable & adequate Hydration State: stable & adequate Anesthetic Complications: no major complications apparent
[2024-06-07] MEDS: PROPOFOL IV EMULSION 10 MG/ML 20 ML VIAL IV ONE (15:00)
[2024-06-07] MEDS: LIDOCAINE 2% 2 ML VIAL/AMP(20MG/ML) INFIL ONE (15:00)
[2024-06-07] MEDS: PHENYLEPHRINE 100MCG/ML 5ML SYR ONE (15:01)
[2024-06-07 21:56] LABS: Hematocrit (blood only) 24.2 % (42.0-52.0); Hemoglobin 8.5 g/dl (14.0-18.0)
--- NOTE | 2024-06-08 07:32 | Hospitalist Progress Note ---
Date of Service June 08, 2024 Assessment & Plan (1) Jaundice: (2) Alcoholic hepatitis: (3) GI bleed: (4) Anemia: (5) Hyponatremia: (6) СВЕТЛАНА (obstructive sleep apnea): (7) H/O: HTN (hypertension): (8) Neuropathy: Plan Peter Dey is a 58 year-old male with a medical history significant for gout, GERD, HTN, neuropathy, and DAVIS. Patient was admitted for abdominal ascites and cirrhosis as well as GI bleed. 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 Small umbilical hernia with minimal protrusion of an adjacent small bowel loop." -Due to anatomy of bowel loop, ED physician defers paracentesis to IR -IR paracentesis completed - Negative for malignancy. Scattered histiocytes and mesothelial cells -TBili of 17.1 today, AST and ALT remain elevated -Monitor daily liver function panel, CBC -Continue Ceftriaxone for coverage of SBP. Leukocytosis but afebrile at present. -Due to history of heavier alcohol consumption, will order AWSS "at-risk" protocol -Negative serum alcohol level in ED, patient reports it has been >1 month since last drinking -Discuss options for treatment/AA prior to discharge -BP has been 90s-100s systolic, if patient becomes more hypotensive could consider IV albumin Gastrointestinal Bleed | Anemia -Ongoing for >1 week with bright red blood in stool -POC Hemoccult positive in the ED. Ordered stool biofire due to bowel incontinence, however this is likely due to presence of blood in stool -Hgb 7.6 on arrival to ED. Started on Octreotide in ED, now stopped -Blood consent form signed -As of 06/08: total of 3u PRBCs given since admission -Transfuse for Hgb <7 -Continue IV Protonix BID -GI consulted - flex sig and EGD completed: showed internal hemorrhoids, severe portal hypertensive gastropathy -Conc - UA ordered due to dark/bloody looking urine Hypokalemia -K 3.2 on a.m. of 06/08 -Repletion ordered, repeat metabolic panel in a.m. Buttocks Wound - Wound care consulted - Continue to monitor for bleeding СВЕТЛАНА- continue CPAP HTN- holding home anti-hypertensives due to current borderline hypotension Admit to: PCU/tele Diet: Heart healthy, low sodium VTE Prophylaxis: Contraindicated due to GI bleed Code Status: Full Code Admission and Anticipated Discharge Date Admission Date: June 05, 2024 Supervising Physician Co-Signing Physician Notes I personally examined the patient and verified frances points of history and exam, discussed case, and agree with decision making and plan documented by Dr. Fregoso. Dad is at bedside this morning. Patient reports seeing hepatology in [place] previously, although suddenly lost to follow-up about 2 years ago. Sounds as if he was doing generally well until recent viral illness noted to pack decompensation. EXAM 99/66, 64, 13, 36.4, 90% on room air Jaundiced, looks about the same as yesterday. CV regular Lungs clear with non labored respirations LABS Hemoglobin 8.5, 7.8 sodium 132, potassium 3.2, BUN 40, creatinine 1.49 Total bilirubin is up to 17.1, direct 9.6. AST 168, ALT 56, alkaline phosphatase 93 Jaundice Alcoholic hepatitis Acute blood loss anemia Monitor hemoglobin; like to see stability prior to discharge. Ultimately needs outpatient follow-up with hepatology, other like to see bilirubin downtrending. Discussed this may lag behind how he feels clinically. Additional per resident documentation Subjective Patient seen and examined at bedside. No acute events reported overnight. Patient is eager to eat more "real" food today, states he is feeling a bit better/more energy than when he came in. Denies abdominal pain, dizziness, lightheadedness. Denies any bowel movements since the enema prior to his flex sig the day before. Review of Systems Review of Systems: As per above Physical Exam Constitutional: No acute distress, resting comfortably. Eyes: PERRL ENMT: Ears: no external ear abnormality Nose: no external nose abnormality Respiratory: normal respiratory effort, lungs clear to auscultation Cardiovascular: Rate/Rhythm: regular rate and regular rhythm Extremities: no edema Gastrointestinal (Abdomen): Inspection/Auscultation: + abdomen distended Percussion/Palpation: abdomen soft and + ascites; abdomen nontender Skin: + jaundice Neurologic: moves all extremities and awake; no focal motor deficits Psychiatric: A+Ox3, euthymic affect Results & Data Results & Data Vital Signs (Past 12 Hours) Vital Signs Temp Pulse Pulse Resp BP Pulse Ox O2 Del Method 06/08/24 02:33 36.7 C 85 18 97/52 L 97 Room Air 06/07/24 22:08 36.7 C 83 17 92/51 L 98 Room Air 06/07/24 21:52 78 06/07/24 19:45 Room Air Resident Activity Tracking Resident Involvement: Resident Care Provided Care Provided: Adult Hospital Medicine
[2024-06-08 08:41] LABS: Basophils # (auto) 0.05 K/uL (0.00-0.20); Basophils % (auto) 0.7 %; Eosinophils # (auto) 0.16 K/uL (0.00-0.50); Eosinophils % (auto) 2.1 %; Hematocrit (blood only) 22.4 % (42.0-52.0); Hemoglobin 7.8 g/dl (14.0-18.0); Immature Granulocytes # (auto) 0.05 K/uL (0.01-0.20); Immature Granulocytes % (auto) 0.7 %; Lymphocytes # (auto) 0.75 K/uL (1.20-3.40); Lymphocytes % (auto) 9.8 %; Mean Corpuscular Hemoglobin 32.9 pg (25.0-34.0); Mean Corpuscular Hgb Conc 34.8 g/dL (32.0-36.0); Mean Corpuscular Volume 94.5 fL (80.0-100.0); Mean Platelet Volume 10.1 fL (9.4-12.4); Monocytes # (auto) 0.54 K/uL (0.11-0.59); Monocytes % (auto) 7.1 %; Neutrophils # (auto) 6.07 K/uL (1.40-6.50); Neutrophils % (auto) 79.6 %; Platelet Count 74 K/uL (130-400); RDW Coefficient of Variation 18.6 % (11.5-14.5); RDW Standard Deviation 63.8 fL (36.4-46.3); Red Blood Count 2.37 M/uL (4.70-6.10); White Blood Count 7.62 K/ul (4.8-10.8)
[2024-06-08 09:01] LABS: Polychromasia 1+; Target Cells 1+
[2024-06-08 09:06] LABS: Albumin Globulin Ratio 0.6 (0.9-2); Albumin Level 2.2 gm/dl (3.4-5.0); BUN Creatinine Ratio 26.8 (10-20); Bilirubin Direct 9.6 mg/dl (0-0.2); Bilirubin,Total 17.1 mg/dl (0.2-1.0); Calcium 7.7 mg/dl (8.6-10.3); Creatinine Clr Calc Pharmacy 68.2 ml/min; Globulin 3.5 gm/dl (2.5-4.0); Potassium 3.2 mmol/L (3.5-5.1); Total Protein 5.7 gm/dl (6.0-8.3)
[2024-06-08] MEDS: POTASSIUM CHLORIDE CRTAB 20 MEQ TABCR PO STA (13:02)
[2024-06-08 17:43] LABS: Hemoglobin 7.7 g/dl (14.0-18.0)
[2024-06-08 18:57] LABS: Appearance Urine Clear (Clear); Bacteria Urine Automated None Seen (None Seen); Bilirubin Urine 3+ (Negative); Blood Urine Negative (Negative); Color Urine Dark Yellow; Epithelial Cell Urine Auto 0-2 /hpf (0-2); Glucose Urine UA Negative (Negative); Ketones Urine Negative (Negative); Leukocyte Esterase Urine Trace (Negative); Nitrite Urine Positive (Negative); Protein Urine Negative (Negative); RBC Urine Automated 0-2 /hpf (0-2); Specific Gravity Urine 1.018 (1.000-1.030); Urobilinogen Urine Negative (Negative); WBC Urine Automated 0-5 /hpf (0-5)
[2024-06-09 06:37] LABS: Basophils # (auto) 0.09 K/uL (0.00-0.20); Basophils % (auto) 1.1 %; Eosinophils # (auto) 0.16 K/uL (0.00-0.50); Hematocrit (blood only) 21.6 % (42.0-52.0); Hemoglobin 7.5 g/dl (14.0-18.0); Immature Granulocytes # (auto) 0.08 K/uL (0.01-0.20); Lymphocytes # (auto) 0.92 K/uL (1.20-3.40); Lymphocytes % (auto) 11.6 %; Mean Corpuscular Hemoglobin 32.9 pg (25.0-34.0); Mean Corpuscular Hgb Conc 34.7 g/dL (32.0-36.0); Mean Corpuscular Volume 94.7 fL (80.0-100.0); Mean Platelet Volume 10.5 fL (9.4-12.4); Monocytes # (auto) 0.49 K/uL (0.11-0.59); Monocytes % (auto) 6.2 %; Neutrophils # (auto) 6.22 K/uL (1.40-6.50); Neutrophils % (auto) 78.1 %; Platelet Count 65 K/uL (130-400); RDW Coefficient of Variation 18.5 % (11.5-14.5); RDW Standard Deviation 64.3 fL (36.4-46.3); Red Blood Count 2.28 M/uL (4.70-6.10); White Blood Count 7.96 K/ul (4.8-10.8)
[2024-06-09 07:04] LABS: Albumin Globulin Ratio 0.6 (0.9-2); Albumin Level 2.1 gm/dl (3.4-5.0); BUN Creatinine Ratio 22.9 (10-20); Bilirubin Direct 8.7 mg/dl (0-0.2); Bilirubin,Total 16.1 mg/dl (0.2-1.0); Calcium 7.6 mg/dl (8.6-10.3); Creatinine Clr Calc Pharmacy 66.4 ml/min; Globulin 3.3 gm/dl (2.5-4.0); Potassium 3.6 mmol/L (3.5-5.1); Total Protein 5.4 gm/dl (6.0-8.3)
--- NOTE | 2024-06-09 07:33 | Hospitalist Progress Note ---
Date of Service June 09, 2024 Assessment & Plan (1) Jaundice: (2) Alcoholic hepatitis: (3) GI bleed: (4) Anemia: (5) Hyponatremia: (6) СВЕТЛАНА (obstructive sleep apnea): (7) H/O: HTN (hypertension): (8) Neuropathy: Plan Peter Dey is a 58 year-old male with a medical history significant for gout, GERD, HTN, neuropathy, and DAVIS. Patient was admitted for abdominal ascites and cirrhosis as well as GI bleed. Cirrhosis | Abdominal Ascites -Previously diagnosed with nonalcoholic steatohepatitis with stage 2 liver fibrosis by biopsy (March 2022), was lost to follow up with [facility] hepatology over two years ago -Family reports jaundiced skin and eyes for at least 1 week, increasing abdominal girth and poor appetite for several weeks -Suspect that recent viral flu-like illness contributed to recent rapid progression of symptoms/decline in liver function -CT A/P shows: "cirrhosis with portal hypertension and four-quadrant ascites. Small umbilical hernia with minimal protrusion of an adjacent small bowel loop." -IR paracentesis completed - Negative for malignancy. Scattered histiocytes and mesothelial cells -TBili of 16.1 today, AST and ALT minimally improved -Monitor daily CMP, CBC -Continue Ceftriaxone for coverage of SBP. Leukocytosis resolved and afebrile. -Due to history of heavier alcohol consumption, will order AWSS "at-risk" protocol -Negative serum alcohol level in ED, patient reports it has been >1 month since last drinking -Discussed options for treatment/AA, patient states that he quit "cold turkey" and does not feel that he needs treatment at this time -BP has been 90s-100s systolic, if patient becomes more hypotensive could consider IV albumin -Will require close follow up with hepatology at discharge Gastrointestinal Bleed | Anemia -Ongoing for >1 week with bright red blood in stool -POC Hemoccult positive in the ED. Ordered stool biofire due to bowel incontinence, however this is likely due to presence of blood in stool -Hgb 7.6 on arrival to ED. Started on Octreotide in ED, now stopped -Blood consent form signed -As of 06/09: total of 3u PRBCs given since admission -Transfuse for Hgb <7. Hgb of 7.5 on 06/09, repeat CBC in a.m. -Continue Protonix BID, will -GI consulted - flex sig and EGD completed: showed internal hemorrhoids, severe portal hypertensive gastropathy -UA ordered due to dark/bloody looking urine- showed no blood but +bilirubin, leukocyte esterase and nitrites -Sample sent for culture but will continue on Ceftriaxone while awaiting culture results Hypokalemia #resolved -K 3.2 on a.m. of 06/08, Repletion ordered Buttocks Wound -Wound care consulted -Continue to monitor for bleeding СВЕТЛАНА- continue CPAP HTN- holding home anti-hypertensives due to current borderline hypotension Admit to: PCU/tele Diet: Heart healthy, low sodium VTE Prophylaxis: Contraindicated due to GI bleed Code Status: Full Code Admission and Anticipated Discharge Date Admission Date: June 05, 2024 Supervising Physician Co-Signing Physician Notes I personally examined the patient and verified frances points of history and exam, discussed case, and agree with decision making and plan documented by Dr. Fregoso. No new complaints today. He reports being pretty much in bed the week prior to his hospitalization, so realizes that he may need some PT prior to returning home. He would plan to go to his parents house for few days until he can return to his home independently. EXAM Vital signs as noted Jaundiced, looks about the same as yesterday. CV regular Lungs clear with non labored respirations LABS Hemoglobin 7.5 sodium 132, potassium 3.6, BUN 35, creatinine 1.53 Total bilirubin is down to 16.1, AST 129, ALT 48, alkaline phosphatase 92 Jaundice Alcoholic hepatitis Acute blood loss anemia Monitor hemoglobin; like to see stability prior to discharge. PT/OT evaluation Ultimately needs outpatient follow-up with hepatology, other like to see bilirubin downtrending. Discussed this may lag behind how he feels clinically. Additional per resident documentation Subjective Patient seen and examined at bedside. No acute events reported overnight. Endorses some intermittent burning with urination yesterday, able to eat and drink liquids without issue. Review of Systems Review of Systems: As per above Physical Exam Constitutional: WD/WN, vitals as above Eyes: PERRL Scleral icterus ENMT: Ears: no external ear abnormality Nose: no external nose abnormality Respiratory: normal respiratory effort, lungs clear to auscultation Cardiovascular: Rate/Rhythm: regular rate and regular rhythm Extremities: no edema Gastrointestinal (Abdomen): Inspection/Auscultation: + abdomen distended Percussion/Palpation: abdomen soft and + ascites; abdomen nontender Skin: + jaundice Neurologic: moves all extremities and awake Psychiatric: A+Ox3, euthymic affect Results & Data Results & Data Vital Signs (Past 12 Hours) Vital Signs Temp Pulse Pulse Resp BP BP Pulse Ox 06/09/24 03:00 36.6 C 83 17 102/60 97 06/08/24 23:27 36.6 C 85 18 103/58 L 96 06/08/24 21:47 88 06/08/24 20:00 06/08/24 20:00 36.6 C 86 19 115/71 96 O2 Del Method 06/09/24 03:00 Room Air 06/08/24 23:27 Room Air 06/08/24 21:47 06/08/24 20:00 Room Air 06/08/24 20:00 Room Air Resident Activity Tracking Resident Involvement: Resident Care Provided Care Provided: Adult Hospital Medicine
[2024-06-09 08:20] LABS: Polychromasia 1+; Spherocytes 1+; Target Cells 1+
[2024-06-09] MEDS: PANTOprazole 40 MG TAB PO SCH (21:25)
[2024-06-10 06:48] LABS: Basophils # (auto) 0.11 K/uL (0.00-0.20); Basophils % (auto) 1.3 %; Eosinophils # (auto) 0.16 K/uL (0.00-0.50); Eosinophils % (auto) 1.9 %; Hematocrit (blood only) 22.4 % (42.0-52.0); Hemoglobin 7.7 g/dl (14.0-18.0); Immature Granulocytes # (auto) 0.09 K/uL (0.01-0.20); Immature Granulocytes % (auto) 1.1 %; Lymphocytes # (auto) 0.89 K/uL (1.20-3.40); Lymphocytes % (auto) 10.8 %; Mean Corpuscular Hemoglobin 33.2 pg (25.0-34.0); Mean Corpuscular Hgb Conc 34.4 g/dL (32.0-36.0); Mean Corpuscular Volume 96.6 fL (80.0-100.0); Mean Platelet Volume 10.1 fL (9.4-12.4); Monocytes # (auto) 0.49 K/uL (0.11-0.59); Monocytes % (auto) 5.9 %; Neutrophils # (auto) 6.53 K/uL (1.40-6.50); Platelet Count 62 K/uL (130-400); RDW Coefficient of Variation 18.6 % (11.5-14.5); RDW Standard Deviation 64.7 fL (36.4-46.3); Red Blood Count 2.32 M/uL (4.70-6.10); White Blood Count 8.27 K/ul (4.8-10.8)
--- NOTE | 2024-06-10 06:52 | Hospitalist Progress Note ---
Date of Service June 10, 2024 Assessment & Plan (1) Jaundice: (2) Alcoholic hepatitis: (3) GI bleed: (4) Anemia: (5) Hyponatremia: (6) ВСЕТЛАНА (obstructive sleep apnea): (7) H/O: HTN (hypertension): (8) Neuropathy: Plan Peter Dey is a 58-year-old male with a medical history significant for gout, GERD, HTN, neuropathy, and DAVIS. Patient was admitted for abdominal ascites and cirrhosis as well as GI bleed. #Cirrhosis, Abdominal Ascites -Previously diagnosed with nonalcoholic steatohepatitis with stage 2 liver fibrosis by biopsy (March 2022), was lost to follow up with [facility] hepatology over two years ago -Family reports jaundiced skin and eyes for at least 1 week, increasing abdominal girth and poor appetite for several weeks -Suspect that recent viral flu-like illness contributed to recent rapid progression of symptoms/decline in liver function -06/05 CT A/P shows: "cirrhosis with portal hypertension and four-quadrant ascites. Small umbilical hernia with minimal protrusion of an adjacent small bowel loop." -06/06 IR paracentesis completed - Negative for malignancy. Scattered histiocytes and mesothelial cells, culture NGTD. -Discontinue Ceftriaxone for coverage of SBP and switch to oral TMP-SMX double strength BID. -Negative serum alcohol level in ED 06/05, patient reports it has been >1 month since last drinking -Discussed options for treatment/AA, patient states that he quit "cold turkey" and does not feel that he needs treatment at this time -Due to history of heavier alcohol consumption, on AWSS "at-risk" protocol -BP has been 90s-100s systolic, if patient becomes more hypotensive could consider IV albumin -06/10 TBili of 16.2, AST and ALT minimally improved -06/10 MELD-Na score: 31 -Monitor daily CMP, CBC -Will require close follow up with hepatology at discharge #Gastrointestinal Bleed, Anemia -Ongoing for >1 week with bright red blood in stool -06/05 POC Hemoccult positive in the ED. Ordered stool biofire due to bowel incontinence, however this is likely due to presence of blood in stool -Hgb 7.6 on arrival to ED. Started on Octreotide in ED, now stopped -Blood consent form signed -As of 06/10: Total of 3u PRBCs given since admission (06/05 and 06/07) -06/06 GI consulted - flex sig and EGD completed: showed internal hemorrhoids, severe portal hypertensive gastropathy -Most likely secondary to hypertensive gastropathy +/- hemorrhoids -Transfuse for Hgb <7. Hgb of 7.5 on 06/09, repeat CBC in a.m. -Continue pantoprazole (Protonix) BID #Bacteruria -06/08 UA showed +bilirubin, leukocyte esterase and nitrites -06/08 Urine culture NGTD -Will not treat as patient is asymptomatic #Hypokalemia #resolved -K 3.2 on a.m. of 06/08, Repletion ordered #Buttocks Wound -Wound care consulted -Continue to monitor for bleeding, signs of infection #СВЕТЛАНА- continue CPAP #HTN- holding home anti-hypertensives due to current borderline hypotension Admit to: PCU/tele Diet: Heart healthy, low sodium VTE Prophylaxis: Contraindicated due to GI bleed Code Status: Full Code Admission and Anticipated Discharge Date Admission Date: June 05, 2024 Supervising Physician Co-Signing Physician Notes I personally examined the patient and verified frances points of history and exam, discussed case, and agree with decision making and plan documented by Dr. Fregoso. No new complaints today. He reports being pretty much in bed the week prior to his hospitalization, so realizes that he may need some PT prior to returning home. He would plan to go to his parents house for few days until he can return to his home independently. EXAM Vital signs as noted Jaundiced, looks about the same as yesterday. CV regular Lungs clear with non labored respirations LABS Hemoglobin 7.5 sodium 132, potassium 3.6, BUN 35, creatinine 1.53 Total bilirubin is down to 16.1, AST 129, ALT 48, alkaline phosphatase 92 Jaundice Alcoholic hepatitis Acute blood loss anemia Monitor hemoglobin; like to see stability prior to discharge. PT/OT evaluation Ultimately needs outpatient follow-up with hepatology, other like to see bilirubin downtrending. Discussed this may lag behind how he feels clinically. Additional per resident documentation Subjective No acute overnight events reported by patient or nurse. No fever, chills, n/v/d, blood in stool, bowel/urinary incontinence. Sleep is "hit or miss." He reports not being able to eat much since transitioning from liquid only diet. He has not walked around a lot and is waiting for PT/OT. He occasionally has muscle cramps and says this started before his hospitalization. Review of Systems Review of Systems: Constitutional: denies fever, chills HEENT: denies vision changes, congestion, sore throat Cardio: denies chest pain, palpitations Resp: denies shortness of breath GI: denies abdominal pain, nausea, vomiting, constipation, diarrhea, bowel incontinence, blood in stool : denies pain with urination, change in urinary frequency, urinary incontinence Neuro: denies new numbness, tingling, weakness Physical Exam Physical Exam: General:Awake and lying in bed, Alert and oriented, no acute distress HEENT: Normocephalic, moist oral mucosa, scleral icterus Cardio: Regular rate and rhythm Resp:Lungs clear to auscultation b/l, no wheezes or rhonchi GI: Soft and nontender, distended, bowel sounds active, dull to percussion Skin: Warm, dry, jaundiced Psych: Mood-affect congruence Extremities: No LE edema or nail clubbing Results & Data Results & Data Vital Signs (Past 12 Hours) Vital Signs Temp Pulse Pulse Resp BP BP Pulse Ox 06/10/24 04:08 36.9 C 83 18 109/64 97 06/09/24 23:34 37.2 C 88 20 92/49 L 97 06/09/24 21:58 91 H 06/09/24 20:49 37.3 C 87 19 96/56 L 97 06/09/24 20:00 O2 Del Method 06/10/24 04:08 Room Air 06/09/24 23:34 Room Air 06/09/24 21:58 06/09/24 20:49 Room Air 06/09/24 20:00 Room Air Resident Activity Tracking Resident Involvement: Resident Care Provided Care Provided: Adult Hospital Medicine Resident Supervision Co-Signing Physician Notes I personally examined the patient and verified all frances points of history and exam, discussed case, and agree with decision making with Dr Gaytan and Beena Young feeling better still jaundiced would like to go home vitals noted nad heent nc at mmm visibly jaundiced. breathing unlabored no accessory muscles good effort skin no rashes no pallor notable icterus cirrhosis w portal hypertensive gastropathy and UGI bleeding s/p 3 units PRBC (bleeding now stable) and ascites w presumed SBP - transition to PO abx, continue protonix. follow bili and INR - give PO vitamin K; will need outpt hepatology; discussed need for absolute sobriety and high concern he may require transplant for any meaningful recovery answered all questions to the best of my above
[2024-06-10 07:08] LABS: Albumin Globulin Ratio 0.6 (0.9-2); Albumin Level 2.1 gm/dl (3.4-5.0); BUN Creatinine Ratio 20.8 (10-20); Bilirubin,Total 16.2 mg/dl (0.2-1.0); Calcium 7.7 mg/dl (8.6-10.3); Creatinine Clr Calc Pharmacy 61.8 ml/min; Globulin 3.5 gm/dl (2.5-4.0); Potassium 3.7 mmol/L (3.5-5.1); Total Protein 5.6 gm/dl (6.0-8.3)
[2024-06-10 07:09] LABS: INR 2.1 (0.9-1.1); Prothrombin Time 21.4 Seconds (9.0-12.0)
[2024-06-10 07:46] LABS: Polychromasia 1+
[2024-06-10] MEDS: THIAMINE HCL 100 MG TAB PO SCH (09:21)
[2024-06-10] MEDS: FOLIC ACID 1 MG TAB PO SCH (09:21)
--- NOTE | 2024-06-10 18:28 | Billing Data ---
Date of Service June 10, 2024 Coding Level of Care Code 78954 SUB INP/OBS CARE MIN
[2024-06-10] MEDS: PHYTONADIONE 5 MG TAB PO STA (19:48)
[2024-06-11] MEDS: MELATONIN 3 MG TAB PO PRN (03:02)
[2024-06-11 03:06] VITALS: RESP 18; O2SAT 97
[2024-06-11 06:56] LABS: Basophils # (auto) 0.09 K/uL (0.00-0.20); Basophils % (auto) 1.2 %; Eosinophils # (auto) 0.16 K/uL (0.00-0.50); Eosinophils % (auto) 2.1 %; Hematocrit (blood only) 21.1 % (42.0-52.0); Hemoglobin 7.3 g/dl (14.0-18.0); Immature Granulocytes # (auto) 0.03 K/uL (0.01-0.20); Immature Granulocytes % (auto) 0.4 %; Lymphocytes # (auto) 0.89 K/uL (1.20-3.40); Lymphocytes % (auto) 11.9 %; Mean Corpuscular Hemoglobin 33.2 pg (25.0-34.0); Mean Corpuscular Hgb Conc 34.6 g/dL (32.0-36.0); Mean Corpuscular Volume 95.9 fL (80.0-100.0); Mean Platelet Volume 10.8 fL (9.4-12.4); Monocytes # (auto) 0.41 K/uL (0.11-0.59); Monocytes % (auto) 5.5 %; Neutrophils # (auto) 5.93 K/uL (1.40-6.50); Neutrophils % (auto) 78.9 %; Platelet Count 69 K/uL (130-400); RDW Coefficient of Variation 18.4 % (11.5-14.5); RDW Standard Deviation 64.6 fL (36.4-46.3); White Blood Count 7.51 K/ul (4.8-10.8)
[2024-06-11 07:13] LABS: Albumin Globulin Ratio 0.6 (0.9-2); Albumin Level 2.1 gm/dl (3.4-5.0); BUN Creatinine Ratio 20.7 (10-20); Bilirubin,Total 15.7 mg/dl (0.2-1.0); Calcium 7.3 mg/dl (8.6-10.3); Creatinine Clr Calc Pharmacy 61.4 ml/min; Globulin 3.7 gm/dl (2.5-4.0); Potassium 3.5 mmol/L (3.5-5.1); Total Protein 5.8 gm/dl (6.0-8.3)
[2024-06-11 07:19] LABS: INR 1.9 (0.9-1.1); Prothrombin Time 19.8 Seconds (9.0-12.0)
[2024-06-11 07:51] LABS: Polychromasia 1+; Tear Drop Cells 1+
[2024-06-11] MEDS: SULFAMETHOXAZOLE/TRIMETHOPRIM DS 800/160MG TAB PO SCH (07:53)
--- NOTE | 2024-06-11 09:44 | Hospitalist Progress Note ---
Date of Service June 11, 2024 Assessment & Plan (1) Jaundice: (2) Alcoholic hepatitis: (3) GI bleed: (4) Anemia: (5) Hyponatremia: (6) СВЕТЛАНА (obstructive sleep apnea): (7) H/O: HTN (hypertension): (8) Neuropathy: Plan Peter Dey is a 58-year-old male with a medical history significant for gout, GERD, HTN, neuropathy, and DAVIS. Patient was admitted for abdominal ascites and cirrhosis as well as GI bleed. Cirrhosis | Abdominal Ascites -Previously diagnosed with nonalcoholic steatohepatitis with stage 2 liver fibrosis by biopsy (March 2022), was lost to follow up with [facility] hepatology over two years ago -Family reports jaundiced skin and eyes for at least 1 week, increasing abdominal girth and poor appetite for several weeks -Suspect that recent viral flu-like illness contributed to recent rapid progression of symptoms/decline in liver function -06/05 CT A/P shows: "cirrhosis with portal hypertension and four-quadrant ascites. Small umbilical hernia with minimal protrusion of an adjacent small bowel loop." -06/06 IR paracentesis completed - Negative for malignancy. Scattered histiocytes and mesothelial cells, culture NGTD. -Negative serum alcohol level in ED 06/05, patient reports it has been >1 month since last drinking -Discussed options for treatment/AA, patient states that he quit "cold turkey" and does not feel that he needs treatment at this time -Due to history of heavier alcohol consumption, on AWSS "at-risk" protocol -BP has been 90s-100s systolic, if patient becomes more hypotensive could consider IV albumin -Tbili and AST slowly improving -Will require close follow up with hepatology at discharge -initially on CTX for SBP prophylaxis but transitioned to bactrim Gastrointestinal Bleed | Anemia -Ongoing for >1 week with bright red blood in stool -06/05 POC Hemoccult positive in the ED. Ordered stool biofire due to bowel incontinence, however this is likely due to presence of blood in stool -Hgb 7.6 on arrival to ED. Started on Octreotide in ED, now stopped -Blood consent form signed -As of 06/10: Total of 3u PRBCs given since admission (06/05 and 06/07) -Transfuse for Hgb <7 -Continue pantoprazole (Protonix) BID -06/06 GI consulted - flex sig and EGD completed: showed internal hemorrhoids, severe portal hypertensive gastropathy - hemoglobin stable in the mid 7s Buttocks Wound -Wound care consulted -Continue to monitor for bleeding, signs of infection СВЕТЛАНА- continue CPAP HTN- holding home anti-hypertensives due to current borderline hypotension VTE Prophylaxis: Contraindicated due to GI bleed Admission and Anticipated Discharge Date Admission Date: June 05, 2024 Subjective Pt seen at bedside this morning. No questions or complaints. He states he is feeling very well, just a bit anxious about his prognosis as he states he "didn't realize his liver disease was do bad." No chest pain or SOB. No nausea or vomiting. Planning to live with his parents for 1-2 weeks on discharge as a transition to home on his own. Review of Systems Review of Systems: Per HPI. Physical Exam Physical Exam: General:Alert and oriented, no acute distress, jaundiced HEENT: Normocephalic, moist oral mucosa, scleral icterus noted Cardio: Regular rate and rhythm, n Resp:No increased resp effort, no resp distress GI: Distended but nontender Skin: Warm, pink, dry, Results & Data Results & Data Vital Signs (Past 12 Hours) Vital Signs Temp Pulse Pulse Resp BP Pulse Ox O2 Del Method 06/11/24 03:05 37.4 C 81 18 100/58 L 97 Room Air 06/11/24 00:22 82 06/10/24 22:50 37.0 C 82 16 94/57 L 96 Room Air Resident Activity Tracking Resident Involvement: Resident Care Provided Care Provided: Adult Hospital Medicine
--- NOTE | 2024-06-11 10:33 | Discharge Summary ---
Date of Service June 11, 2024 Admission HPI Per Admitting Provider Peter Dey is a 58 year-old male with a medical history significant for gout, GERD, HTN, neuropathy, and DAVIS who presented to the ED for blood in stool. He was seen by his PCP this morning for a recent flu-like illness and was found to be hypotensive (BP 78/42) and jaundiced, was strongly recommended to go to the ED for further evaluation. Patient presented to the ED alongside his mother and father. Patient states that he stopped drinking alcohol about 1 month ago (states he had been drinking about 1 beer and 300mL of Minh Kennedy per week at that time), then a few weeks later he started to develop a flu-like illness and had episodes of fever, vomiting, and nausea. He states he has not been eating or drinking much fluids recently due to no appetite. He denies dizziness or lightheadedness, but endorses feeling very winded/short of breath with minimal exertion (i.e. standing up). He reports that he has had ongoing bowel incontinence with bright red blood in his stool, also has had bladder incontinence so he has been wearing a Depends since this illness started about two weeks ago. P Patient lives alone, his parents live locally and visit several times per week. Patient previously lived in [place] area, moved to [place] a few years ago. Patient's father notes that he first started to notice that Peter looked a bit yellow about 1.5 weeks ago. Patient notes that his abdomen has also become more large, will occasionally be tender (1 or 2 out of 10 intensity). He recalls being evaluated by hepatology in the past at [facility] (saw Dr. Parr), but has not follow up in about two years. Prior records note a biopsy proven DAVIS with stage 2 liver fibrosis (from biopsy in 2021). ED Course: -CBC, CMP, Type/screen -CXR -2g IV Ceftriaxone, IV Octreotide, Admission Exam Per Admitting Provider Constitutional: Ill appearing, resting in bed. Alert and oriented. Eyes: PERRL Scleral icterus bilaterally ENMT: Ears: no external ear abnormality Nose: no external nose abnormality Moist mucous membranes Respiratory: normal respiratory effort, lungs clear to auscultation Cardiovascular: Rate/Rhythm: regular rate and regular rhythm Extremities: no edema Gastrointestinal (Abdomen): Inspection/Auscultation: + abdomen distended and + caput medusae present Percussion/Palpation: abdomen soft and + ascites No point tenderness to palpation Musculoskeletal: Moves all limbs independently Skin: + jaundice No rashes, warm and dry. Neurologic: CN's II-XI intact bilaterally, moves all extremities and awake; no focal motor deficits Psychiatric: A+Ox3, euthymic affect Principal Diagnosis Liver cirrhosis with acute liver failure Discharge Exam General:Alert and oriented, no acute distress, jaundiced HEENT: Normocephalic, moist oral mucosa, scleral icterus noted Cardio: Regular rate and rhythm, n Resp:No increased resp effort, no resp distress GI: Distended but nontender Skin: Warm, pink, dry, Discharge Data Allergies Allergy/AdvReac Type Severity Reaction Status Date / Time pollen extracts Allergy Intermediate SNEEZING, Verified 05/18/23 20:46 CONGESTION Consultations 06/05/24 15:21 ED Decision to Admit Stat 06/05/24 16:38 Consult Gastroenterology Routine Procedures Performed Operation Date: 06/07/24 16:30 Actual Procedures p Esophagogastroduodenoscopy - Ramón Zamudio MD s Colonoscopy - Ramón Zamudio MD Ordered Studies 06/05/24 12:58 CT abd pelvis wo con Stat 06/05/24 12:59 CT cervical spine wo con Stat CT head/brain wo con Stat 06/06/24 00:00 IR paracentesis abd w/img US Routine Hospital Course (1) Jaundice: (2) Alcoholic hepatitis: (3) GI bleed: (4) Anemia: (5) Hyponatremia: (6) СВЕТЛАНА (obstructive sleep apnea): (7) H/O: HTN (hypertension): (8) Neuropathy: Shamir Dey is a 58-year-old male with a medical history significant for gout, GERD, HTN, neuropathy, and DAVIS. Patient was admitted for abdominal ascites and cirrhosis as well as GI bleed. Cirrhosis | Abdominal Ascites Acute liver failure, improving -Previously diagnosed with nonalcoholic steatohepatitis with stage 2 liver fibrosis by biopsy (March 2022), was lost to follow up with [facility] hepatology over two years ago -Family reports jaundiced skin and eyes for at least 1 week, increasing abdominal girth and poor appetite for several weeks -Suspect that recent viral flu-like illness contributed to recent rapid progression of symptoms/decline in liver function, but also note hx of excessive alcohol use -06/05 CT A/P shows: "cirrhosis with portal hypertension and four-quadrant ascites. Small umbilical hernia with minimal protrusion of an adjacent small bowel loop." -06/06 IR paracentesis completed - Negative for malignancy. Scattered histiocytes and mesothelial cells, culture negative -Negative serum alcohol level in ED 06/05, patient reports it has been >1 month since last drinking -Discussed options for treatment/AA, patient states that he quit "cold turkey" and does not feel that he needs treatment at this time -Due to history of heavier alcohol consumption, on AWSS "at-risk" protocol but this was not needed throughout hospital stay -hypotensive in the hospital but permissible -Tbili and AST slowly improving throughout hospital stay -Will require close follow up with hepatology at discharge -initially on CTX for SBP prophylaxis but transitioned to bactrim to continue at discharge for 2 more days (7 days total) Gastrointestinal Bleed | Anemia, stable -Ongoing for >1 week with bright red blood in stool -06/05 POC Hemoccult positive in the ED -06/06 GI consulted - flex sig and EGD completed: showed internal hemorrhoids, severe portal hypertensive gastropathy -on 06/10: 3 units blood given, hemoglobin stable mid 7's since -Continue pantoprazole (Protonix) BID on discharge Should follow with PCP by end of this week, recommend CBC/CMP for further monitoring outside of the hospital. Total Time Total Time Spent Total Time Spent (In Minutes): As per attending attestation Discharge Plan Discharge Items Patient Disposition: Home - Self-Care Reason For Visit: JAUNDICE, GI BLEED Discharge Diagnosis: Liver cirrhosis with acute failure Activity: Resume your previous activity Non-emergency contact: Primary Care Provider Call non-emergency contact if: you have any medication questions, your symptoms worsen, your pain is worsening and your temperature is above 101 Follow-up/Referrals: Vivi Lopez MD [Primary Care Provider] - 06/13/24 10:25 am ([facility] appointment scheduled with Dr. Miramontes on June 13, 2024 at 10:25am) Diet: Regular and Low Sodium (2gm) Addtl Attending Provider Instructions: You were admitted to the hospital for an episode of liver failure and noted to have liver cirrhosis (irreversible liver scarring). It is absolutely essential in people with liver cirrhosis that you follow up with a stock unloader (liver doctor) and your primary care doctor regularly for monitoring and further steps. It is also necessary that you not drink any alcohol when you leave the hospital, as right now your liver is very severely damaged and scarred that continuing to drink will lead quickly into liver failure, which can be deadly. Along with no alcohol, you should no start taking any over the counter medications (examples: iburpofen, tylenol, aspirin, cold medicines) without talking to your primary care doctor first, as your liver is so damaged that any medication that can harm the damage could also progress the damage at this point. Some medications are safe to take, but please check with your primary care about starting any new medications first. We have sent a medication called pantoprazole to the pharmacy for you. You were on this in the hospital. This medication helps decrease the amount of stomach acid you produce which will allow your stomach to heal from the recent bleed you had. If you notice bright red or black stools, please contact your primary care doctor for further evaluation. We have also sent the remainder of your antibiotic course to prevent an infection in your belly. This medication is called bactrim (sulfamethoxazole- trimethoprim) DO NOT stop taking this medication unless directed by a doctor, even if you feel totally fine. You will need to hold your blood pressure medications given your low blood pressure noted here in the hospital until you see your primary care physician. When you leave the hospital, you should take your blood pressure at home twice daily until you see your primary care doctor (you can purchase a cuff online or at [facility] or [facility] locally). Please follow-up with your primary care doctor by the end of this week. Please follow-up with hepatology as scheduled. Pending Studies at Discharge: No Stand-Alone Forms: My [facility] Medications and DC Order Prescriptions: New pantoprazole 40 mg Tablet,Delayed Release (Dr/Ec) 40 mg PO BID 30 Days Qty: 60 3RF sulfamethoxazole-trimethoprim [Bactrim DS] 800-160 mg Tablet 1 tab PO Q12 2 Days Qty: 4 0RF Continued fluticasone propionate 50 mcg/actuation spray,suspension 1 spray INTRANASAL BID PRN (Reason: sinus congestion) Held amlodipine 2.5 mg tablet 2.5 mg PO DAILY Hold Instructions: Resume on 07/15/24. Hold until your follow up appointment with your primary care doctor and resume only if directed by them to restart. chlorthalidone 50 mg tablet 50 mg PO DAILY Hold Instructions: Resume on 07/15/24. Hold until your follow up appointment with your primary care doctor and resume only if directed by them to restart. telmisartan 80 mg tablet 80 mg PO DAILY Hold Instructions: Resume on 07/15/24. Hold until your follow up appointment with your primary care doctor and resume only if directed by them to restart. allopurinol 100 mg tablet 100 mg PO QAM Hold Instructions: Resume on 07/15/24. Hold until your follow up appointment with your primary care doctor and resume only if directed by them to restart. trazodone 50 mg tablet 50 mg PO HS Hold Instructions: Resume on 07/15/24. Hold until your follow up appointment with your primary care doctor and resume only if directed by them to restart. Discontinued cetirizine [Zyrtec] 10 mg Tablet 10 mg PO DAILY PRN (Reason: ALLERGIES) Discharge Orders: Discharge Order (Routine); Ordered 06/11/24 Ordered By: Jacquelin Gaytan Admission Data Admit Date/Time: 06/05/24 16:35 Attending Provider: Jose Schmitt Admit Provider: Stacy Fregoso Primary Care Provider: Vivi Lopez Other Providers: Rosendo Miller; Ramón Zamudio Other Interventions: Discharge Summary Assessment (RN) Last Done: 06/11/24 12:10 Supervising Physician Co-Signing Physician Notes I personally examined the patient and verified frances points of history and exam, discussed case, and agree with decision making and plan documented by Dr. Gaytan wants to go home. no new complaints. discussed labs/f/u etc. vitals noted nad heent nc at mmm visibly jaundiced no respiratory distress mentation intact somewhat less concrete than yesterday Jaundice Alcoholic hepatitis Acute blood loss anemia - appears predominantly due to portal hypertensive gastropathy Pressure ulcer of right hip, stage 3, POA Pressure ulcer of right buttock, stage 3, POA Pressure ulcer of left hip, stage 3, POA Pressure ulcer of left buttocks, at least stage 3, POA -Hgb stable - safe for home - outpt f/u. PPI. -EtOH cessation / discussed to avoid all OTCs unless d/w pcp first; asked for hepatology f/u via nurse navigator -close PCP f/u as well Additional per resident documentation Resident Activity Tracking Resident Involvement: Resident Care Provided Care Provided: Adult Hospital Medicine
[2024-06-11 11:06] VITALS: BP 104/64; TEMP 97.3
[2024-06-11 12:12] VITALS: PULSE 74
--- NOTE | 2024-06-11 13:03 | Billing Data ---
Date of Service June 11, 2024 Coding Level of Care Code 46007 IN/OBS DISCH 30 MIN/LESS
== END 2024-06-11 14:21 | disposition home or self-care (01) | DRG 432 ==
LOC: ED 11:29 → 2S 16:35 → SUATTDRO 16:35 → 2S 17:32